=== PATIENT | male | born 1935 | race Caucasian/White ===

== ENCOUNTER 2016-12-10 09:47 | Emergency (ER) | payer OTHER, MEDICARE ==
[~2016-12-10 09:47] MED LIST: ACETAMINOPHEN-H1 TA2 PO; ADVAIR 250-501 EACH INH; ALBUTEROL2.5 MG/3 M INH/SOL; AVODART0.5 M1 PO; COLACE100 MG PO; COMPAZINE10 MG PO; COUMADIN 7.5 M7.5 MG PO; FLOMAX0.4 M1 PO; LISINOPRIL AND1 TAB PO; MULTIPLE VITAM1 EAC2 PO; PROVENTIL HFA6.7 GM INH; SENOKOT8.6 MG PO
[2016-12-10] MEDS ORDERED: BREO ELLIPTA 21 EACH PO (10:16)
[2016-12-10] MEDS ORDERED: LISINOPRIL5 M1 PO (10:16)
--- NOTE | 2016-12-10 10:49 | ED INFLUENZA/URI COMPLAINT ---
History of Present Illness General Chief Complaint: Upper Respiratory Sx/Fever Stated Complaint: URI/ASTHMA Source: patient Exam Limitations: poor historian Vital Signs & Intake/Output Vital Signs & Intake/Output Vital Signs Date Time Temp Pulse Resp B/P Pulse O2 O2 Flow FiO2 Ox Delivery Rate 12/10 1401 100.9 91 18 108/53 96 12/10 1220 98 12/10 1200 101.5 12/10 1155 101.5 75 24 100/54 98 Room Air 12/10 1114 103.5 12/10 1046 103.5 12/10 1015 101.2 12/10 1014 97 12/10 0958 101.2 86 24 136/61 97 Room Air Allergies Coded Allergies: Penicillins (SOB 01/06/16) oxycodone (From PERCOCET) (Intermediate, HALLUCINATIONS 01/06/16) Reconcile Medications Albuterol Sulfate 2.5 MG/3 ML (0.083 %) VIAL.NEB 1 Vial INH/COURTNEY Q4P PRN ASTHMA (Reported) Albuterol Sulfate (Proventil Hfa) 90 MCG HFA.AER.AD 2 PUF INH 4 TIMES/DAY PRN ASTHMA (Reported) Dutasteride (Avodart) 0.5 MG CAPSULE 1 CAP PO DAILY PROSTATE (Reported) Fluticasone/Vilanterol (Breo Ellipta 200-25 Mcg INH) 200 MCG-25 MCG/DOSE BLST.W.DEV 1 PUFF PO DAILY BREATHING PROBLEMS (Reported) Lisinopril 5 MG TABLET 1 TAB PO DAILY HEART (Reported) Multivitamin (Multiple Vitamins) 1 EACH TABLET 1 TAB PO DAILY SUPPLEMENT ( Reported) Tamsulosin HCl (Flomax) 0.4 MG CAP.ER.24H 1 CAP PO DAILY PROSTATE (Reported) Triage Note: PT PRESENTS TO ER C/O OF SOB, BODYACHES, CHILLS, AND SORE THROAT. PT STATES SYMPTOMS STARTED LAST NIGHT. PT TEMP AT TRIAGE 101.2 Triage Nurses Notes Reviewed? yes HPI: Patient presents for evaluation of subjective fever chills runny nose shivers chest tightness and shortness of breath that began gradually on Wednesday. Symptoms are characterized as moderate to severe in intensity and nothing seems to make him feel better at this point. Patient just returned from a four-day retreat at [facility] in [place].. No associated nausea vomiting diarrhea or dysuria. No rashes. Patient has been vaccinated for the flu and for shingles. No medications tried. Past History Travel History Traveled to [place] past 21 day No Medical History Any Pertinent Medical History? 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 , Age 60+. FATHER (stomach cancer). , Age 60+. SISTER (dementia). BROTHER (dementia in two brothers). . Hx Contributory? No Review of Systems Review of Systems Constitutional: Reports: no symptoms. EENTM: Reports: see HPI. Respiratory: Reports: no symptoms. Cardiovascular: Reports: no symptoms. GI: Reports: no symptoms. Genitourinary: Reports: no symptoms. Musculoskeletal: Reports: no symptoms. Skin: Reports: no symptoms. Neurological/Psychological: Reports: no symptoms. Hematologic/Endocrine: Reports: no symptoms. Immunologic/Allergic: Reports: no symptoms. All Other Systems: Reviewed and Negative Physical Exam Physical Exam Ears, Nose, Throat: SEE BELOW Comments: Gen.: Well-nourished, well-developed, no acute respiratory distress. Head: Normocephalic, atraumatic. Eyes: Normal inspection bilaterally Ears: Normal inspection bilaterally Nose: Normal inspection Throat/mouth : Moist mucosa Neck: Supple, full range of motion, no goiter Heart: Regular rate and rhythm, no murmurs rubs or gallops Lungs: Clear to auscultation bilaterally with normal air entry Chest: Nontender Back: Normal range of motion Abdomen: Soft, nontender, nondistended, normal bowel sounds Extremities: Normal range of motion grossly, equal radial pulses, no cyanosis clubbing or edema Neurologic: Cranial nerves grossly intact, speech is clear Skin: warm and dry Psychiatric: Calm, cooperative, no apparent delusions or hallucinations Core Measures Severe Sepsis Present: No Septic Shock Present: No Progress Differential Diagnosis: pneumonia, VIRAL SYNDROME, uti Plan of Care: Orders Procedure Date/time Status CULTURE,URINE 12/10 1100 Active BLOOD CULTURE 12/10 1100 Active URINALYSIS 12/10 1100 Complete COMPREHENSIVE METABOLIC PANEL 12/10 1100 Complete CBC WITHOUT DIFFERENTIAL 12/10 1100 Complete RAPID VIRAL INFLUENZA A 12/10 1008 Complete EKG 12/10 0950 Active Laboratory Tests 12/10/16 1137: Urine Color YEL, Urine Clarity CLEAR, Urine pH 7.0, Ur Specific [place] 1.020, Urine Protein NEG, Urine Ketones NEG, Urine Nitrite NEG, Urine Bilirubin NEG, Urine Urobilinogen 0.2, Ur Leukocyte Esterase NEG, Ur Microscopic SEDIMENT EXAMINED, Urine RBC RARE, Urine Hemoglobin TRACE-INTACT H, Urine Glucose NEG 12/10/16 1125: Anion Gap 11, Estimated GFR 58 L, BUN/Creatinine Ratio 18.3, Glucose 109 H, Calcium 9.4, Total Bilirubin 0.8, AST 31, ALT 32, Alkaline Phosphatase 78, Total Protein 6.7, Albumin 3.8, Globulin 2.9, Albumin/Globulin Ratio 1.3, CBC w Diff NO MAN DIFF REQ, RBC 4.94, MCV 88.8, MCH 30.1, RDW 14.4, MPV 9.3, Gran % 83.4 H , Lymphocytes % 4.5 L, Monocytes % 9.2, Eosinophils % 2.7, Basophils % 0.2, Absolute Granulocytes 7.5 H, Absolute Lymphocytes 0.4 L, Absolute Monocytes 0.8 H, Absolute Eosinophils 0.2, Absolute Basophils 0, PUBS MCHC 33.9 Microbiology 12/10 1152 BLOOD: Blood Culture - RECD 12/10 1137 URINE ROUT: Urine Culture - RECD 12/10 1125 BLOOD: Blood Culture - RECD 12/10 1011 NASOPHARYN: Influenza Virus A & B Rapid Smear - COMP Diagnostic Imaging: Discussed w/RAD: Radiology Read. CXR Impression: PATIENT: DONAL CAMPOS PRESENT AGE: 81 PATIENT ACCOUNT NO: [id number] : 34 LOCATION: [facility] ORDERING PHYSICIAN: BJORN GARCIA MD SERVICE DATE: 12/10/16-1099 EXAM TYPE: RAD - XRY-PORTABLE CHEST XRAY EXAMINATION: XR PORTABLE CHEST CLINICAL INFORMATION: Fever COMPARISON : None TECHNIQUE: Portable AP view of the chest was obtained. FINDINGS: The lungs are clear with no focal consolidation. No evidence of pneumothorax, pulmonary edema, or pleural effusions. The cardiomediastinal silhouette is unremarkable. No acute osseous findings. IMPRESSION: No acute cardiopulmonary findings. DICTATED BY: GEM OLEARY MD DATE/TIME DICTATED:12/10/161134 DISCHARGE PLANNER:TAWNYA DATE/TIME TRANSCRIBED:12/10/161134 CONFIDENTIAL, DO NOT COPY WITHOUT APPROPRIATE AUTHORIZATION. <Electronically signed in Other Vendor System> SIGNED BY: GEM OLEARY MD 12/10/16 1142 Initial ED EKG: none Comments: 12/10/2016 10:48:16 AM Donal states that he has a penicillin allergy as his only known allergic reaction. He states he's never been told not to take Tylenol. We have an allergy listed to Tylenol with hallucinations. It seems likely that the hallucinations came from the oxycodone component of Percocet and not the acetaminophen component. Tylenol has been ordered for persistent high fever. 12/10/2016 2:12:20 PM Donal appears comfortable at this point and he is conversant and without complaint. I've explained to him that the evaluation here in the emergency department has been unrevealing. He will follow up with his primary care doctor within 24 hours for reevaluation. Departure Departure Disposition: HOME OR SELF CARE Condition: Stable Clinical Impression Primary Impression: Febrile illness, acute Referrals: PATSY MILLER DO (PCP/Family) Additional Instructions: Alternate Tylenol 975 mg with ibuprofen 600 mg every 6 hours as needed for fever. Robitussin as needed for cough or cold symptoms. Follow-up with your primary care doctor tomorrow (or if unable then return to the emergency department) for reevaluation. Return immediately if any sudden worsening. Thank you for choosing the [facility] Emergency Department for your care. It was a pleasure to serve you today. Bjorn Garcia M.D. [facility] Departure Forms: Customer Survey General Discharge Information
[2016-12-10 11:41] LABS: ABSOLUTE BASOPHIL COUNT 0 /CUMM (0.0-0.2); ABSOLUTE EOSINOPHIL COUNT 0.2 /CUMM (0.0-0.7); ABSOLUTE GRANULOCYTE CT 7.5 /CUMM (1.4-6.5); ABSOLUTE LYMPH COUNT 0.4 /CUMM (1.2-3.4); ABSOLUTE MONOCYTE COUNT 0.8 /CUMM (0.10-0.60); BASOPHIL % 0.2 % (0.0-2.0); EOSINOPHIL % 2.7 % (0-5); HEMATOCRIT 43.8 % (42-52); MEAN CORPUSCULAR HGB 30.1 PG (27.0-31.0); MEAN CORPUSCULAR HGB CONC 33.9 G/DL (33.0-37.0); MEAN CORPUSCULAR VOLUME 88.8 FL (80.0-94.0); MEAN PLATELET VOLUME 9.3 FL (7.4-10.4); PLATELET COUNT 153 /CUMM (130-400); RBC DISTRIBUTION WIDTH 14.4 % (11.5-14.5); RED BLOOD CELL CT 4.94 /CUMM (4.70-6.10); WHITE BLOOD CELL COUNT 8.9 /CUMM (4.8-10.8)
--- NOTE | 2016-12-10 11:42 | RADIOLOGY REPORT ---
EXAMINATION: XR PORTABLE CHEST CLINICAL INFORMATION: Fever COMPARISON: None TECHNIQUE: Portable AP view of the chest was obtained. FINDINGS: The lungs are clear with no focal consolidation. No evidence of pneumothorax, pulmonary edema, or pleural effusions. The cardiomediastinal silhouette is unremarkable. No acute osseous findings. IMPRESSION: No acute cardiopulmonary findings.
[2016-12-10 12:11] LABS: GRANULOCYTE % 83.4 % (42.2-75.2)
[2016-12-10 14:01] VITALS: BP 108/53
== END 2016-12-10 15:00 ==
LOC: ERH 09:47
PROVIDERS: Emergency Medicine
DX: R50.9 Fever, unspecified (principal)
CPT/HCPCS: 1263; 81001; 87040; 87086; 87804; 87804-59; 93005; 93010; 96360; J7040

== ENCOUNTER 2016-12-12 10:36 | Inpatient (IN) | payer OTHER, MEDICARE ==
[~2016-12-12] VITALS: Ht 162.6 cm; Wt 69.9 kg
[~2016-12-12 10:36] MED LIST changes: +BREO ELLIPTA 21 EACH PO; +LISINOPRIL5 M1 PO
--- NOTE | 2016-12-12 10:49 | NUR ---
PT TO ED FOR BODY ACHES, CHILLS. DX'ED WITH FLU ON WEDNESDAY AND "NOT FEELING BETTER AND I LIVE ALONE". AFEBRILE AT TRIAGE.
--- NOTE | 2016-12-12 11:12 | ED GENERAL ADULT ---
History of Present Illness General Chief Complaint: General Adult Stated Complaint: CHEST CONGESTION, CP, COUGH, +FLU Source: patient, old records Exam Limitations: no limitations Vital Signs & Intake/Output Vital Signs & Intake/Output Vital Signs Date Time Temp Pulse Resp B/P Pulse O2 O2 Flow FiO2 Ox Delivery Rate 12/12 1556 99.9 74 18 128/69 96 Room Air 12/12 1418 100.1 12/12 1404 100.1 78 18 129/60 97 Room Air 12/12 1226 99.3 82 18 137/66 97 Room Air 12/12 1150 96 12/12 1132 98 12/12 1048 98.8 98 15 106/92 97 Room Air Allergies Coded Allergies: Penicillins (SOB 01/06/16) oxycodone (From PERCOCET) (Intermediate, HALLUCINATIONS 01/06/16) Reconcile Medications Albuterol Sulfate 2.5 MG/3 ML (0.083 %) VIAL.NEB 1 Vial INH/COURTNEY Q4P PRN ASTHMA (Reported) Albuterol Sulfate (Proventil Hfa) 90 MCG HFA.AER.AD 2 PUF INH 4 TIMES/DAY PRN ASTHMA (Reported) Azithromycin (Zithromax) 250 MG TABLET 1 DP PO AD URI (Reported) 2 the first day followed by 1 for days 2-5 Dutasteride (Avodart) 0.5 MG CAPSULE 1 CAP PO DAILY PROSTATE (Reported) Fluticasone/Vilanterol (Breo Ellipta 200-25 Mcg INH) 200 MCG-25 MCG/DOSE BLST.W.DEV 1 PUFF PO DAILY BREATHING PROBLEMS (Reported) Lisinopril 5 MG TABLET 1 TAB PO DAILY HEART (Reported) Multivitamin (Multiple Vitamins) 1 EACH TABLET 1 TAB PO DAILY SUPPLEMENT ( Reported) Robitussin AC (Guaifenesin-Codeine Syrup) (Unknown Strength) LIQUID (Unknown Dose) PRN PRN COUGH (Reported) Tamsulosin HCl (Flomax) 0.4 MG CAP.ER.24H 1 CAP PO DAILY PROSTATE (Reported) Triage Note: PT TO ED FOR BODY ACHES, CHILLS. DX'ED WITH FLU ON WEDNESDAY AND "NOT FEELING BETTER AND I LIVE ALONE". AFEBRILE AT TRIAGE. Triage Nurses Notes Reviewed? yes HPI: Patient is an 81-year-old male presents complaining of cough with sputum production, sore throat, fevers. Symptoms onset on Wednesday. Patient was seen in the emergency department 2 days ago and was discharged. Patient was seen yesterday by Dr. Conn covering for his primary doctor, was placed on azithromycin and cough medication containing codeine. Patient reports he took the first dose of the azithromycin yesterday, has not been feeling any improvement. Patient used his Aman inhaler and nebulizer inhaler with mild improvement this morning. Positive fevers. Patient has been taking Tylenol and Advil alternating every 3 hours with mild improvement. (HUYEN COLEMAN) Past History Travel History Traveled to [place] past 21 day No Medical History Any Pertinent Medical History? 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 , Age 60+. FATHER (stomach cancer). , Age 60+. SISTER (dementia). BROTHER (dementia in two brothers). . Hx Contributory? No (HUYEN COLEMAN) Review of Systems Review of Systems Constitutional: Reports: chills, fever, malaise. EENTM: Reports: nasal congestion, throat pain. Respiratory: Reports: see HPI. Cardiovascular: Denies: chest pain. GI: Denies: abdominal pain, nausea, vomiting. Genitourinary: Reports: no symptoms. Musculoskeletal: Reports: no symptoms. Skin: Reports: no symptoms. Neurological/Psychological: Reports: no symptoms. Hematologic/Endocrine: Reports: no symptoms. Immunologic/Allergic: Reports: no symptoms. (HUYEN COLEMAN) Physical Exam Physical Exam General Appearance: well developed/nourished, alert, awake Head: atraumatic, normal appearance Eyes: Bilateral: normal appearance, PERRL, EOMI. Ears, Nose, Throat: normal ENT inspection, hearing grossly normal, minimal pharyngeal erythema, no exudates Neck: normal inspection, supple, full range of motion Respiratory: chest non-tender, mild diffuse expiratory wheezing Cardiovascular: regular rate/rhythm (no murmur appreciated) Gastrointestinal: soft, non-tender Back: normal inspection, normal range of motion Extremities: normal inspection, normal capillary refill, normal range of motion, no edema Neurologic/Psych: no motor/sensory deficits, awake, alert, oriented x 3, normal gait, normal mood/affect Skin: intact, normal color, warm/dry Lymphatic: no anterior cervical quan Core Measures ACS in differential dx? No CVA/TIA Diagnosis: No Severe Sepsis Present: No Septic Shock Present: No (ELENA CORDERO,HUYEN) Progress Differential Diagnoses I considered the following diagnoses in my evaluation of the patient: bronchitis , pneumonia, influenza, electrolyte abnormality, SABAS Plan of Care: Orders Procedure Date/time Status Regular Diet 12/12 D Active Pathway - chart 12/12 1551 Active Pathway - chart 12/12 1550 Active House Staff 12/12 1550 Active Patient Data 12/12 1550 Active Code Status 12/12 1550 Active Patient Data 12/12 1423 Active OXYGEN SETUP (GEN) 12/12 1404 Active Saline Lock 12/12 1404 Active Misc Message 12/12 1404 Active ED Holding Orders 12/12 1404 Active Vital Signs 12/12 1404 Active Activity/Ambulation 12/12 1404 Active Code Status 12/12 1404 Complete Admit to inpatient 12/12 1403 Active EKG 12/12 1324 Active AEROSOL (GEN) 12/12 1213 Complete Intake & Output 12/12 1131 Active CBC WITHOUT DIFFERENTIAL 12/12 1120 Complete BASIC METABOLIC PANEL 12/12 1120 Complete VTE Mechanical Prophylaxis 12/12 UNK Active Current Medications Sig/Yamel Start time Last Medication Dose Stop Time Status Admin Heparin Sodium 5,000 UNIT Q8 12/12 2200 AC (Porcine) Acetaminophen 650 MG Q6P PRN 12/12 1600 AC (Tylenol) Laboratory Tests 12/12/16 1147: Anion Gap 11, Estimated GFR 36 L, BUN/Creatinine Ratio 19.4, Glucose 106 H, Calcium 9.3, CBC w Diff NO MAN DIFF REQ, RBC 4.63 L, MCV 89.7, MCH 29.6, RDW 14.8 H, MPV 10.2, Gran % 73.8, Lymphocytes % 6.2 L, Monocytes % 17.9 H, Eosinophils % 2.0, Basophils % 0.1, Absolute Granulocytes 4.9, Absolute Lymphocytes 0.4 L, Absolute Monocytes 1.2 H, Absolute Eosinophils 0.1, Absolute Basophils 0, PUBS MCHC 33.0 1210: Discussed with Dr. Logan. (HUYEN COLEMAN) Diagnostic Imaging: Viewed by Me: Radiology Read. Discussed w/RAD: Radiology Read. CXR Impression: PATIENT: FRANCHESCA CAMPOS PRESENT AGE: 81 PATIENT ACCOUNT NO: [id number] : 34 LOCATION: [facility] ORDERING PHYSICIAN: HUYEN CORDERO SERVICE DATE: 12/12/16 EXAM TYPE: RAD - XRY-CHEST XRAY, PA AND LATERAL EXAMINATION: XR CHEST CLINICAL INFORMATION: Cough. Fever. Sputum production. Evaluate for pneumonia. COMPARISON: Chest x-ray dated 2016, 08/05/2015 and 11/12/2010. TECHNIQUE: 2 views of the chest were obtained. FINDINGS: The cardiomediastinal silhouette is within normal limits in size. Lungs bilaterally are symmetrically mildly hyperinflated and demonstrate slight thickening of the central airways, consistent with obstructive lung disease. No focal consolidation, effusion or pneumothorax is seen. Bony structures are unremarkable. IMPRESSION: 1. Unchanged appearance of the chest with no focal pneumonia seen. 2. Obstructive lung disease. DICTATED BY: VICENTE HONG MD DATE/TIME DICTATED:12/12/161214 RACE STARTER:TAWNYA DATE/TIME TRANSCRIBED:12/12/161214 CONFIDENTIAL, DO NOT COPY WITHOUT APPROPRIATE AUTHORIZATION. <Electronically signed in Other Vendor System> SIGNED BY: VICENTE HONG MD 12/12/16 1222 Initial ED EKG: normal sinus rhythm, nonspecific ST T wave chg Prior EKG: changed (nonspecific st/t wave) (HUYEN COLEMAN) Departure Departure Time of Disposition: 1315 Disposition: STILL A PATIENT Condition: Stable Clinical Impression Primary Impression: Acute kidney injury Secondary Impressions: Bronchitis Referrals: PATSY MILLER DO (PCP/Family) Departure Forms: Customer Survey General Discharge Information Admission Note Spoke With: EVELIA PERRY MD Documentation of Exam: Documentation of any treatments & extenuating circumstances including Concerns Regarding Discharge (functional status, medication knowledge or non-compliance, living conditions, etc.) that warrant an admission rather than observation: IV fluids, total respiratory care, pulmonary consultation. Patient failing outpatient therapy with increase in creatinine. Hold patient's lisinopril. (HUYEN COLEMAN) PA/FOX FARMER Co-Sign Statement Statement: ED Attending supervision documentation- [X] I saw and evaluated the patient. I have also reviewed all the pertinent lab results and diagnostic results. I agree with the findings and the plan of care as documented in the PA's/FOX FARMER's documentation. [X] I have reviewed the ED Record and agree with the PA's/FOX FARMER's documentation. [] Additions or exceptions (if any) to the PAs/FOX FARMER's note and plan are summarized below: [] (MALLIKA LEE,KRISTAN Roberts) Critical Care Note Critical Care Note Critical Care Time: non-applicable (HUYEN COLEMAN)
--- NOTE | 2016-12-12 11:12 | NUR ---
PT TO ROOM 18 FROM TRIAGE IN W/C, PT REPORTS "I HAVE THE FLU AND I F/U WITH MY DR YESTERDAY AND HE GAVE ME CODEINE AND ZPACK, BUT MY THROAT IS SORE AND I'M COUGHING AND CONGESTED." PT REMINDED OF NEGATIVE FLU SWAB LAST VISIT. CONSUELO PARKER AT BEDSIDE.
--- NOTE | 2016-12-12 11:27 | NUR ---
MED WITH [facility]ADRON PER EMAR, RT CALLED FOR NEB TX. PT TO XRAY ON STRETCHER NOW.
--- NOTE | 2016-12-12 11:37 | NUR ---
PT'S NEIGHBOR CALLED WITH MULTIPLE CONCERNS, BELIEVES PT SHOULD NOT HAVE BEEN D/C FROM ED THURS AND ALSO UPSET PT WAS NOT SEEN BY HIS PORTABLE SAWYER DR SHARMA IN ED ON TH FOR PULMONARY CONSULT. ALSO REQUESTING VNA WHILE PT IS SICK. INFORMED PT MAY NOT QUALIFY BUT WILL ASK FINANCIAL SERVICES COUNSELOR. PA INFORMED OF REQUEST FOR PULM AND STATES PT'S PRIMARY DR IS WORKING ON IT BUT NO NEED IN ER.
[2016-12-12] MEDS ORDERED: GUAIFENESIN-COD10 ML (11:41)
[2016-12-12] MEDS ORDERED: ZITHROMAX250 M2 PO (11:41)
--- NOTE | 2016-12-12 11:41 | NUR ---
BACK FROM XRAY. MST AT BEDSIDE FOR LABS.
--- NOTE | 2016-12-12 11:49 | NUR ---
BLOOD DRAWN AND SENT TO LAB ([facility], [facility])
--- NOTE | 2016-12-12 11:50 | NUR ---
RT AT BEDSIDE
--- NOTE | 2016-12-12 12:00 | NUR ---
Case Mgmnt TSF: I went in and introduced myself to patient. I asked him if he felt he needed any services at home. Patient does not feel he needs any services. He is independent and drives. I let him know if anything changes he is more than welcome to call us or come back. He sees Dr. Barakat for pulmonology and I suggested perhaps he call on Wednesday for an appointment. He stated that was a good idea. CM complete.
--- NOTE | 2016-12-12 12:03 | NUR ---
PHONG FROM [employer] ASKED RE: NEIGHBOR'S REQUEST FOR VNA. SHE AGREES PT IS UNLIKELY TO QUALIFY BUT DID SPEAK WITH PT. PT TOLD HER HE DOES NOT WANT VNA.
[2016-12-12 12:09] LABS: ABSOLUTE BASOPHIL COUNT 0 /CUMM (0.0-0.2); ABSOLUTE EOSINOPHIL COUNT 0.1 /CUMM (0.0-0.7); ABSOLUTE GRANULOCYTE CT 4.9 /CUMM (1.4-6.5); ABSOLUTE LYMPH COUNT 0.4 /CUMM (1.2-3.4); ABSOLUTE MONOCYTE COUNT 1.2 /CUMM (0.10-0.60); BASOPHIL % 0.1 % (0.0-2.0); GRANULOCYTE % 73.8 % (42.2-75.2); HEMATOCRIT 41.6 % (42-52); MEAN CORPUSCULAR HGB 29.6 PG (27.0-31.0); MEAN CORPUSCULAR VOLUME 89.7 FL (80.0-94.0); MEAN PLATELET VOLUME 10.2 FL (7.4-10.4); PLATELET COUNT 136 /CUMM (130-400); RBC DISTRIBUTION WIDTH 14.8 % (11.5-14.5); RED BLOOD CELL CT 4.63 /CUMM (4.70-6.10); WHITE BLOOD CELL COUNT 6.7 /CUMM (4.8-10.8)
--- NOTE | 2016-12-12 12:22 | RADIOLOGY REPORT ---
EXAMINATION: XR CHEST CLINICAL INFORMATION: Cough. Fever. Sputum production. Evaluate for pneumonia. COMPARISON: Chest x-ray dated 12/10/2016, 08/05/2015 and 11/12/2010. TECHNIQUE: 2 views of the chest were obtained. FINDINGS: The cardiomediastinal silhouette is within normal limits in size. Lungs bilaterally are symmetrically mildly hyperinflated and demonstrate slight thickening of the central airways, consistent with obstructive lung disease. No focal consolidation, effusion or pneumothorax is seen. Bony structures are unremarkable. IMPRESSION: 1. Unchanged appearance of the chest with no focal pneumonia seen. 2. Obstructive lung disease.
--- NOTE | 2016-12-12 14:11 | NUR ---
IVF INFUSING, PT AWARE OF PLAN FOR ADMIT. LUNCH TRAY ORDERED.
--- NOTE | 2016-12-12 14:24 | History & Physical ---
MALCOLM SALDAÑA 12/12/16 1424: General Information and HPI MD Statement: I have seen and personally examined FRANCHESCA CAMPOS and documented this H&P. The patient is a 81 year old M who presented with a patient stated chief complaint of [productive cough, sore throat, fever]. Source of Information: patient, old records Exam Limitations: no limitations History of Present Illness: Mr Campos is an 81-year-old gentleman with a PMH of asthma (is followed by Dr. Barakat), HTN, BPH who presents with complaints of progressive productive cough, sore throat and fevers. 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 He followed up in the emergency room and his PCP towards the end of the week and was prescribed a Z-Farhan and guaifenesin with codeine for symptomatic control. He reports progressive chest tightness, difficulty with breathing, sore throat despite starting on the Robitussin with codeine along with Z-Farhan. He does endorse alternating with Tylenol and Advil every 3 hours to help with body discomfort and pain with swallowing. Of note rapid influenza test was negative. He currently reports a persistent sore throat but denies any fevers, chills, chest pain, palpitation or worsening in breathing. Allergies/Medications Allergies: Coded Allergies: Penicillins (SOB 01/06/16) oxycodone (From PERCOCET) (Intermediate, HALLUCINATIONS 01/06/16) Home Med list Albuterol Sulfate 2.5 MG/3 ML (0.083 %) VIAL.NEB 1 Vial INH/COURTNEY Q4P PRN ASTHMA (Reported) Albuterol Sulfate (Proventil Hfa) 90 MCG HFA.AER.AD 2 PUF INH 4 TIMES/DAY PRN ASTHMA (Reported) Azithromycin (Zithromax) 250 MG TABLET 1 DP PO AD URI (Reported) 2 the first day followed by 1 for days 2-5 Dutasteride (Avodart) 0.5 MG CAPSULE 1 CAP PO DAILY PROSTATE (Reported) Fluticasone/Vilanterol (Breo Ellipta 200-25 Mcg INH) 200 MCG-25 MCG/DOSE BLST.W.DEV 1 PUFF PO DAILY BREATHING PROBLEMS (Reported) Lisinopril 5 MG TABLET 1 TAB PO DAILY HEART (Reported) Multivitamin (Multiple Vitamins) 1 EACH TABLET 1 TAB PO DAILY SUPPLEMENT ( Reported) Robitussin AC (Guaifenesin-Codeine Syrup) (Unknown Strength) LIQUID (Unknown Dose) PRN PRN COUGH (Reported) Tamsulosin HCl (Flomax) 0.4 MG CAP.ER.24H 1 CAP PO DAILY PROSTATE (Reported) Past History Travel History Traveled to [place] past 21 day No Medical History Neurological: NONE EENT: NONE Cardiovascular: hypertension Respiratory: asthma Gastrointestinal: NONE Hepatic: NONE Renal: NONE Musculoskeletal: osteoarthritis Psychiatric: NONE Endocrine: NONE Blood Disorders: NONE Cancer(s): 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 , Age 60+. FATHER (stomach cancer). , Age 60+. SISTER (dementia). BROTHER (dementia in two brothers). . Psychosocial History Who Do You Live With? self Services at Home: None Primary Language: Eritrean ETOH Use: occasional use Illicit Drug Use: denies illicit drug use Functional Ability ADLs Independent: dressing, eating, toileting, bathing. Ambulation: cane, walker IADLs Independent: shopping, housework, finances, food prep, telephone, transportation , medication admin. Review of Systems Review of Systems Constitutional: Reports: see HPI. EENTM: Reports: see HPI. Cardiovascular: Reports: no symptoms. Respiratory: Reports: see HPI. GI: Reports: no symptoms. Musculoskeletal: Reports: no symptoms. Neurological/Psychological: Reports: no symptoms. Exam & Diagnostic Data Last 24 Hrs of Vital Signs/I&O Vital Signs Date Time Temp Pulse Resp B/P Pulse O2 O2 Flow FiO2 Ox Delivery Rate 12/12 1556 99.9 74 18 128/69 96 Room Air 12/12 1418 100.1 12/12 1404 100.1 78 18 129/60 97 Room Air 12/12 1226 99.3 82 18 137/66 97 Room Air 12/12 1150 96 12/12 1132 98 12/12 1048 98.8 98 15 106/92 97 Room Air Intake & Output 12/12 1600 12/12 0800 12/12 0000 Intake Total Output Total Balance Patient 155 lb Weight Physical Exam General Appearance Alert, Cooperative, No Acute Distress, Hoarse voice HEENT PERRLA, EOMI, Mucous Membr. moist/pink, No evidence of pharyngela erythema or exudate Cardiovascular Regular Rate, Normal S1, Normal S2 Lungs Normal Air Movement, Expiratory rhonchi present BL Abdomen Normal Bowel Sounds, Soft, No Tenderness Extremities No Edema, Normal Pulses Vascular Pulses Symmetrical Last 24 Hrs of Labs/Tylor: Laboratory Tests 12/12/16 1147: Anion Gap 11, Estimated GFR 36 L, BUN/Creatinine Ratio 19.4, Glucose 106 H, Calcium 9.3, CBC w Diff NO MAN DIFF REQ, RBC 4.63 L, MCV 89.7, MCH 29.6, RDW 14.8 H, MPV 10.2, Gran % 73.8, Lymphocytes % 6.2 L, Monocytes % 17.9 H, Eosinophils % 2.0, Basophils % 0.1, Absolute Granulocytes 4.9, Absolute Lymphocytes 0.4 L, Absolute Monocytes 1.2 H, Absolute Eosinophils 0.1, Absolute Basophils 0, PUBS MCHC 33.0 Microbiology 12/12 2143 URINE ROUT: Legionella Antigen - ORD 12/12 2143 URINE ROUT: Streptococcus pneumoniae Antigen (M - ORD 12/12 2143 URINE ROUT: Urine Culture - ORD Diagnostic Data CXR Results The cardiomediastinal silhouette is within normal limits in size. Lungs bilaterally are symmetrically mildly hyperinflated and demonstrate slight thickening of the central airways, consistent with obstructive lung disease. No focal consolidation, effusion or pneumothorax is seen. Assessment/Plan Assessment: 81-year-old gentleman with a PMH of asthma, HTN, BPH who presents with 5 day duration of productive cough, intermittent fevers, chills, URI symptoms, started on azithromycin and guaifenesin with codeine 24 hours ago with no improvement. Patient was also taking Tylenol and Advil every 3 hours for sore throat. Rapid influenza test came back negative. VS: BP 106/92, HR 98, RR 15, SPO2 95% on RA, T 98.9. MAXIMUM TEMPERATURE 100.1. Labs: WBC 6.7, H&H 13.7/41.6, platelets 136, sodium 146, BUN/CR 35/1.8, glucose 106 Problem list: 1. Bronchitis vs asthma exacerbation vs atypical pneumonia vs strep pharyngitis 2. Acute kidney injury 3. Hyponatremia 4. HTN 5. BPH Plan: * Admit to general medicine for management of his wrist her symptoms * His rest her symptoms appear to have a possible multifactorial etiology: Less likely influenza in the setting of negative rapid flu test however asthma exacerbation with superimposed bronchitis could be playing a part * Follow-up rapid strep throat culture * Started patient on ceftriaxone and azithromycin * The setting of CXR findings of airway inflammation, rhonchi and scant expiratory wheeze on PE, would be inclined to continue the patient on IV steroids and assess for clinical improvement in the a.m. * SABAS: She reports Tylenol and Advil Q3hrs over the past few days. This could have played a part in his renal insufficiency. In the setting of mild hyponatremia, will hydrate with D5 half and is at 75 mL an hour 1. Follow-up renal function in the a.m. Avoid nephrotoxic agents * HTN: BP so far is well-controlled. Will hold lisinopril, monitor BP and if required start him on amlodipine 2.5-5 mg pending resolution of SABAS * AM team: Consult pulmonology * Diet: Heart healthy * I&O over the next 24 hours. Continuing tamsulosin and dutasteride for BPH. If persistent SABAS, follow-up with bladder scan/renal ultrasound * DVT prophylaxis: Heparin 5000 units subcutaneous * CODE STATUS: DNR/DNI AM TEAM: * Follow-up new clean catch UA * Follow-up urine strep, Legionella antigen * Follow-up rapid strep throat culture As Ranked By This Provider Problem List: 1. Bronchitis 2. Acute kidney injury 3. Asthma 4. BPH (benign prostatic hypertrophy) 5. Hypertension Core Measures/Miscellaneous Acute Coronary Syndrome ACS Diagnosis: No Cerebrovascular Accident CVA/TIA Diagnosis: No Congestive Heart Failure CHF Diagnosis: No Venous Thromboembolism VTE Risk Factors: Age > 40 VTE Prophylaxis Ordered Inpt: Pharm- Heparin No Mech VTE prophylaxis d/t: No contraindications No VTE Pharm Prophylaxis d/t: No contraindications VTE Diagnosis: No VTE Type: NONE VTE Confirmed by (Test): NONE Severe Sepsis Severe Sepsis Present: No Septic Shock Septic Shock Present: No Miscellaneous Documentation Attending Case Discussed With: VICKY LEE,EVELIA Henriquez Primary Care Physician: PATSY MILLER DO Patient sees these Specialists Dr. Barakat Level of Patient Care: General Medicine Resident Review Statement Resident Statement: examined this patient, discussed with recruitment internship, agreed with recruitment internship, reviewed EMR data (avail), discussed with nursing, reviewed images EVELIA PERRY MD 12/12/16 1652: Attending MD Review Statement Attending Statement Attending MD Statement: examined this patient, discuss w/resident/PA/AUTOMOBILE DEALER, agreed w/resident/PA/AUTOMOBILE DEALER, reviewed EMR data (avail), discussed with case mgmt, reviewed images Attending Assessment/Plan: 81-year-old male past medical history of hypertension, asthma/obstructive lung disease and BPH. He sees Dr. Barakat as an outpatient for pulmonary care and he says that he has been diagnosed with ?influenza although I'm unclear as to how he got this diagnosis given that the flu swab we have here is negative. He clearly made an ED visit here on 12/10 where he had a fever of 103 but no white count ,chest x-ray was negative, flu swab was negative. He subsequently went to his primary's office and was given a Z-Farhan and codeine but continues to feel feverish with cough chills and is now getting dehydrated with evidence of sabas. Will bring him into general medicine, treat him as an asthma exacerbation, he already got IV steroids in the ER. Given that he is not obviously wheezing or has no evidence now of active bronchospasm will hold off on any more steroids. I am worried about a clinical pneumonia given his ongoing symtoms of cough, fever, sob and the chest xray may not be totally reliable as he is dehydrated with a cre that went from 1.2 to 1.8 in 2 days. Will give him ceftriaxone and azithromycin and closely follow-up his respiratory status with TRC with nebs. He is specifically requesting Dr. Barakat to see him and will call pulmonary in a.m. Will hydrate him and hold all nephrotoxic's including his lisinopril. Give him DVT prophylaxis and follow closely.
--- NOTE | 2016-12-12 14:50 | NUR ---
PT EATING LUNCH, NO COMPLAINTS AT THIS TIME.
--- NOTE | 2016-12-12 14:51 | NUR ---
PT ADMITTED TO ROOM 229-1
--- NOTE | 2016-12-12 15:55 | NUR ---
SEEN BY HOUSE STAFF
--- NOTE | 2016-12-12 16:14 | NUR ---
REPORT CALLED TO [facility] ON 2N, TRANSPORT BOOKED, PT AWARE. MADE AWARE OF PERCOCET ORDERS WITH OXYCODONE ADVERSE RXN AND STATES IT WILL BE D/C.
--- NOTE | 2016-12-12 16:58 | Admission Certification ---
Admission Certification Certification Statement - As attending physician, I certify that at the time of - admission, based on clinical presentation, severity of - symptoms, need for further diagnostic testing and - therapeutic interventions, and risk of adverse outcomes - without in-hospital treatment, in my clinical assessment, - this patient requires an acute hospital stay for a minimum - of two nights or longer. I have also considered psychsocial - factors such as support system, advanced age, financial - issues, cognitive issues, and failed out-patient treatments, - past re-admission history, safety of patient, and lack of - compliance as applicable. Specific rationale supporting this admission is: Acute cough fever and respiratory symptoms in patient with known asthma and failure of outpatient treatment.
--- NOTE | 2016-12-12 20:05 | NUR ---
PT ARRIVED TO FLOOR AT [facility]. 1650/ A&O X3. LUNGS CTA, VOICE HOARSE, C/O INTERMITTENT PAIN, BUT CURRENTLY 0/10. IV FLUIDS RUNNING PER EMAR. 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 PT AWARE AND VERBALIZED UNDERSTANDING TO RECEIVE UPON D/C. BED LOW, LOCKED, CALL FREEDMAN WITHIN REACH. MONITOR RESP STATUS AND MAINTAIN SAFETY PRECATIONS.
[2016-12-12 22:27] VITALS: BP 118/60
[2016-12-13 06:49] VITALS: BP 116/74
[2016-12-13 08:24] LABS: ABSOLUTE BASOPHIL COUNT 0 /CUMM (0.0-0.2); ABSOLUTE EOSINOPHIL COUNT 0 /CUMM (0.0-0.7); ABSOLUTE GRANULOCYTE CT 5.3 /CUMM (1.4-6.5); ABSOLUTE LYMPH COUNT 0.5 /CUMM (1.2-3.4); ABSOLUTE MONOCYTE COUNT 0.4 /CUMM (0.10-0.60); BASOPHIL % 0 % (0.0-2.0); EOSINOPHIL % 0 % (0-5); GRANULOCYTE % 86.2 % (42.2-75.2); MEAN CORPUSCULAR HGB CONC 33.5 G/DL (33.0-37.0); MEAN CORPUSCULAR VOLUME 89.7 FL (80.0-94.0); MEAN PLATELET VOLUME 10.6 FL (7.4-10.4); PLATELET COUNT 130 /CUMM (130-400); RBC DISTRIBUTION WIDTH 14.5 % (11.5-14.5); RED BLOOD CELL CT 4.01 /CUMM (4.70-6.10)
--- NOTE | 2016-12-13 08:24 | PN- Housestaff ---
JITENDRA LEE,[facility] 12/13/16 0824: Subjective Follow-up For: productive cough, sore throat, fever Subjective: Patient is alert and oriented, in no distress, appears well nourished. reports he could not sleep well last night because of the machine put around his legs ( APLS). reports coughing with brown phlegm, also that he noticed blood coming out at the end of urination last night. he did not notice blood again. Review of Systems Constitutional: Denies: chills, fever, weakness. EENTM: Reports: no symptoms. Cardiovascular: Denies: chest pain, palpitations. Respiratory: Reports: cough, sputum production. Denies: short of breath, wheezing. Gastrointestinal: Denies: abdominal pain, nausea, bloody stool, changes in stool, vomiting. Genitourinary: Reports: dysuria, hesitation, pain. Musculoskeletal: Reports: no symptoms. Skin: Reports: no symptoms. Neurological/Psychological: Reports: no symptoms. Objective Last 24 Hrs of Vital Signs/I&O Vital Signs Date Time Temp Pulse Resp B/P Pulse O2 O2 Flow FiO2 Ox Delivery Rate 12/13 0649 98.4 74 16 116/74 94 Room Air 12/12 2312 Room Air 12/12 2227 98.7 74 18 118/60 94 Room Air 12/12 1556 99.9 74 18 128/69 96 Room Air 12/12 1418 100.1 12/12 1404 100.1 78 18 129/60 97 Room Air 12/12 1226 99.3 82 18 137/66 97 Room Air 12/12 1150 96 12/12 1132 98 12/12 1048 98.8 98 15 106/92 97 Room Air Intake & Output 12/13 1600 12/13 0800 12/13 0000 Intake Total 720 950 Output Total 150 600 Balance 570 350 Intake, IV 600 650 Intake, Oral 120 300 Number 0 Bowel Movements Output, Urine 150 600 Patient 69.853 kg Weight Physical Exam General Appearance: Alert, Oriented X3, Cooperative, No Acute Distress Skin: No Rashes, No Breakdown, No Significant Lesion HEENT: Atraumatic, EOMI Neck: Supple, No JVD Cardiovascular: Regular Rate, Normal S1, Normal S2, No Murmurs Lungs: diffuse bilaterall wheezing and rhonchi (inspiratory and expiratory) Abdomen: Normal Bowel Sounds, Soft, No Tenderness Neurological: Normal Speech, Normal Tone Extremities: No Cyanosis, No Edema, Normal Pulses, No Tenderness/Swelling Vascular: Normal Pulses, Pulses Symmetrical Current Medications: Current Medications Sig/Yamel Start time Last Medication Dose Route Stop Time Status Admin Acetaminophen 650 MG Q6P PRN 12/12 1600 AC PO Acetaminophen 0 .STK-MED ONE 12/12 1419 DC PO Acetaminophen 650 MG ONCE ONE 12/12 1415 DC 12/12 PO 12/12 1416 1418 Albuterol Sulfate 3 ML EVERY 4 HRS/AWAKE 12/13 0800 AC 12/12 INH 2140 Albuterol Sulfate 3 ML ONCE ONE 12/12 1130 DC 12/12 INH 12/12 1131 1144 Azithromycin 500 MG 12/12 AC 12/12 Dextrose/Water 250 ML IV 2259 Ceftriaxone Sodium 1,000 MG 12/12 2200 AC 12/12 IV 2259 Dexamethasone 8 MG ONCE ONE 12/12 1130 DC 12/12 PO 12/12 1131 1127 Dexamethasone 0 .STK-MED ONE 12/12 1126 DC PO Dextrose/Sodium 1,000 ML Q13H 12/12 2130 AC 12/12 Chloride IV 12/13 1029 2259 Dutasteride 0.5 MG DAILY 12/13 1000 AC PO Guaifenesin 10 ML Q6P PRN 12/12 2130 AC 12/12 PO 2130 Guaifenesin/Codeine 10 ML ONCE ONE 12/12 1415 DC 12/12 Phosphate PO 12/12 1416 1418 Heparin Sodium 5,000 UNIT Q8 12/12 2200 AC 12/13 (Porcine) SC 0535 Ipratropium [place] 2.5 ML ONCE ONE 12/12 1130 DC 12/12 INH 12/12 1131 1144 Methylprednisolone 40 MG Q12 12/12 2200 AC 12/12 IV 2259 Oxycodone/ 1 TAB Q6P PRN 12/12 1600 DC Acetaminophen PO Oxycodone/ 2 TAB Q6P PRN 12/12 1600 DC Acetaminophen PO Sodium Chloride 1,000 ML ONCE ONE 12/12 1330 DC 12/12 IV 12/12 2129 1408 Tamsulosin HCl 0.4 MG 12/13 0800 AC PO Last 24 Hrs of Lab/Tylor Results Last 24 Hrs of Labs/Mics: Laboratory Tests 12/13/16 0635: Anion Gap 9, Estimated GFR 49 L, BUN/Creatinine Ratio 21.4, CBC w Diff Pending, WBC Pending, RBC Pending, Hgb Pending, Hct Pending, MCV Pending, MCH Pending, RDW Pending, Plt Count Pending, MPV Pending, Gran % Pending, Lymphocytes % Pending, Monocytes % Pending, Eosinophils % Pending, Basophils % Pending, Absolute Granulocytes Pending, Absolute Lymphocytes Pending, Absolute Monocytes Pending, Absolute Eosinophils Pending, Absolute Basophils Pending, PUBS MCHC Pending 12/12/162233: Urine Color YEL, Urine Clarity CLEAR, Urine pH 6.0, Ur Specific [place] 1.015, Urine Protein TRACE H, Urine Ketones NEG, Urine Nitrite NEG, Urine Bilirubin NEG, Urine Urobilinogen 0.2, Ur Leukocyte Esterase NEG, Ur Microscopic SEDIMENT EXAMINED, Urine RBC 10-15 H, Urine WBC 5-10 H, Ur Epithelial Cells RARE, Urine Hemoglobin MOD H, Urine Glucose NEG 12/12/16 1147: Anion Gap 11, Estimated GFR 36 L, BUN/Creatinine Ratio 19.4, Glucose 106 H, Calcium 9.3, CBC w Diff NO MAN DIFF REQ, RBC 4.63 L, MCV 89.7, MCH 29.6, RDW 14.8 H, MPV 10.2, Gran % 73.8, Lymphocytes % 6.2 L, Monocytes % 17.9 H, Eosinophils % 2.0, Basophils % 0.1, Absolute Granulocytes 4.9, Absolute Lymphocytes 0.4 L, Absolute Monocytes 1.2 H, Absolute Eosinophils 0.1, Absolute Basophils 0, PUBS MCHC 33.0 Microbiology 12/12 2233 URINE ROUT: Legionella Antigen - RES 12/12 2233 URINE ROUT: Streptococcus pneumoniae Antigen (M - RES 12/12 2233 URINE ROUT: Urine Culture - RES Assessment/Plan Assessment: 81-year-old gentleman with a PMH of asthma, HTN, BPH who presents with 5 day duration of productive cough, intermittent fevers, chills, URI symptoms, started on azithromycin and guaifenesin with codeine 24 hours ago with no improvement. Patient was also taking Tylenol and Advil every 3 hours for sore throat. Rapid influenza test came back negative. VS: BP 106/92, HR 98, RR 15, SPO2 95% on RA, T 98.9. MAXIMUM TEMPERATURE 100.1. Labs: WBC 6.7, H&H 13.7/41.6, platelets 136, sodium 146, BUN/CR 35/1.8, glucose 106 Problem list: 1. Bronchitis vs asthma exacerbation vs atypical pneumonia vs strep pharyngitis 2. Acute kidney injury 3. Hyponatremia 4. HTN 5. BPH, dysuria negative urine strep, Legionella antigen negative rapid strep throat culture Plan: * Continue ceftriaxone and azithromycin, continue IV solumedrol and nebulizer Tx * Inform Dr. Barakat tomorrow AM * Dysuria: UA shows RBCs, Hb, WBC, Urine culture sent, will follow * SABAS improvving after hydration, will repeat BEP in AM. Avoid nephrotoxic agents * HTN: held lisinopril for SABAS, monitor BP and if required start him on amlodipine 2.5-5 mg pending resolution of SABAS * AM team: Consult pulmonology * Diet: Heart healthy * I&O over the next 24 hours. Continuing tamsulosin and dutasteride for BPH. If persistent SABAS, follow-up with bladder scan/renal ultrasound * DVT prophylaxis: Heparin 5000 units subcutaneous * CODE STATUS: DNR/DNI Problem List: 1. Febrile illness, acute 2. BPH (benign prostatic hypertrophy) 3. Asthma 4. Hypertension 5. Acute kidney injury Pain Ratin Pain Location: no pain Pain Goal: Pain 4 or less Pain Plan: mild pain pathway Tomorrow's Labs & Rationales: CBC (fever, leukocytosis), BEP (SABAS) VICKY LEE,EVELIA 12/13/16 0829: Attending MD Review Statement Attending Statement Attending MD Statement: examined this patient, discuss w/resident/PA/INSTALL TECHNICIAN, agreed w/resident/PA/INSTALL TECHNICIAN, reviewed EMR data (avail), discussed with nursing, reviewed images Attending Assessment/Plan: Patient is still coughing. Overall he feels so-so. Some minor improvement since admission. His tmax was 100.1. Saturation is 94% on room air. He is an 81-year-old male with a past medical history of asthma/obstructive lung disease is here with what we think is a clinical pneumonia. He's had sick contacts, a fever 103 (12/10), ongoing respiratory symptoms and now dehydration with SABAS with failure of outpatient by mouth meds. We have him on ceftriaxone and azithro for the pneumonia, we have him on IV steroids to treat the bronchospasm associated with it. He was dehydrated and we have the lisinopril on hold and gave him fluids overnight. If his sodium is better and he is eating we can stop the fluids. He follows with Dr. Barakat in the office and is requesting a pulmonary consult so we'll follow up with that. And follow closely. failure of outpatient by mouth meds. We have him on ceftriaxone and azithro for the pneumonia, we have him on IV steroids to treat the bronchospasm associated with it. He was dehydrated and we have the lisinopril on hold and gave him fluids overnight. If his sodium is better and he is eating we can stop the fluids. He follows with Dr. Barakat in the office and is requesting a pulmonary consult so we'll follow up with that. And follow closely.
[2016-12-13 09:52] LABS: WHITE BLOOD CELL COUNT 6.1 /CUMM (4.8-10.8)
[2016-12-13 15:28] VITALS: BP 100/60
[2016-12-13 23:42] VITALS: BP 130/60
[2016-12-14 06:21] VITALS: BP 120/76
--- NOTE | 2016-12-14 07:19 | PN- Housestaff ---
See Addendum Subjective Follow-up For: productive cough, nasal congestion, sore throat, fever, episode of blood in the urine with painful urination Subjective: I saw and examined the patient this am, patient is alert and oriented, in no distress, patient reports congestion and soreness in the nose. Reports improvement of his symptoms, still has coughing and brigns up phlegm but to a lesser extent. Review of Systems Constitutional: Denies: chills, fever, weakness. EENTM: Reports: no symptoms. Cardiovascular: Denies: chest pain, orthopena. Respiratory: Reports: cough, short of breath, sputum production (brown sputum). Denies: hemoptysis. Gastrointestinal: Denies: abdominal pain, changes in stool. Genitourinary: Denies: dysuria, frequency. Musculoskeletal: Reports: no symptoms. Skin: Reports: no symptoms. Neurological/Psychological: Reports: no symptoms. Objective Last 24 Hrs of Vital Signs/I&O Vital Signs Date Time Temp Pulse Resp B/P Pulse O2 O2 Flow FiO2 Ox Delivery Rate 12/14 0915 95 Room Air 12/14 0742 71 120/76 12/14 0621 98.3 71 20 120/76 97 Room Air 12/14 0000 Room Air 12/13 2342 97.9 95 20 130/60 96 Room Air 12/13 1610 97 Room Air 12/13 1528 98.1 78 20 100/60 97 Intake & Output 12/14 1600 12/14 0800 12/14 0000 Intake Total 100 400 Output Total Balance 100 400 Intake, IV 300 Intake, Oral 100 100 Physical Exam General Appearance: Alert, Oriented X3, Cooperative, No Acute Distress Skin: No Breakdown, No Significant Lesion HEENT: Atraumatic, EOMI Neck: Supple Cardiovascular: Normal S1, Normal S2, No Murmurs Lungs: Normal Air Movement, end expiratory wheezing bilateral and diffuse Abdomen: Soft, No Tenderness Neurological: Normal Speech, Normal Tone Extremities: No Edema, Normal Pulses Vascular: Pulses Symmetrical Current Medications: Current Medications Sig/Yamel Start time Last Medication Dose Route Stop Time Status Admin Acetaminophen 650 MG .STK-MED ONE 12/13 2155 DC PO 12/13 2156 Acetaminophen 650 MG Q6P PRN 12/12 1600 AC 12/13 PO 220 Albuterol Sulfate 3 ML EVERY 4 HRS/AWAKE 12/13 0800 AC 12/14 INH 0908 Azithromycin 500 MG 2200 02/25 2200 AC 12/13 Dextrose/Water 250 ML IV 2142 Ceftriaxone Sodium 1,000 MG 12/12 AC 12/13 IV 2131 Dutasteride 0.5 MG DAILY 12/13 999 AC 12/14 PO 0743 Guaifenesin 10 ML Q6P PRN 12/12 2129 AC 12/14 PO 0933 Heparin Sodium 5,000 UNIT Q8 12/12 2199 AC 12/14 (Porcine) SC 0549 Methylprednisolone 40 MG Q24 12/15 1000 DC IV Methylprednisolone 40 MG Q12 12/15 1000 AC IV Methylprednisolone 40 MG Q12 12/12 2199 DC 12/14 IV 0742 Tamsulosin HCl 0.4 MG 12/13 0800 AC 12/14 PO 0742 Last 24 Hrs of Lab/Tylor Results Last 24 Hrs of Labs/Mics: Laboratory Tests 12/14/16 0620: Anion Gap 8, Estimated GFR 49 L, BUN/Creatinine Ratio 26.4 H, Magnesium 2.1, CBC w Diff MAN DIFF ORDERED, RBC 3.98 L, MCV 88.8, MCH 29.6, RDW 14.5, MPV 11.1 H, Gran % 85.7 H, Lymphocytes % 7.6 L, Monocytes % 6.6, Eosinophils % 0.1, Basophils % 0 L, Absolute Granulocytes 6.7 H, Segmented Neutrophils 77 H, Band Neutrophils 1, Absolute Lymphocytes 0.6 L, Lymphocytes 12 L, Monocytes 8, Absolute Monocytes 0.5, Absolute Eosinophils 0, Absolute Basophils 0, Metamyelocytes 2 H, Platelet Estimate VERIFIED BY SMEAR, Normocytic RBCs VERIFIED, Normochromic RBCs VERIFIED, PUBS MCHC 33.4 Assessment/Plan Assessment: 81-year-old gentleman with a PMH of asthma, HTN, BPH who presents with 5 day duration of productive cough, intermittent fevers, chills, URI symptoms, started on azithromycin and guaifenesin with codeine 24 hours ago with no improvement. Patient was also taking Tylenol and Advil every 3 hours for sore throat. Rapid influenza test came back negative. VS: BP 106/92, HR 98, RR 15, SPO2 95% on RA, T 98.9. MAXIMUM TEMPERATURE 100.1. Labs: WBC 6.7, H&H 13.7/41.6, platelets 136, sodium 146, BUN/CR 35/1.8, glucose 106 Problem list: 1. Bronchitis vs asthma exacerbation 2. Acute kidney injury 3. Hyponatremia 4. HTN 5. BPH, one episode of dysuria and hematuria negative urine strep, Legionella antigen negative rapid strep throat culture Plan: * Continue ceftriaxone and azithromycin, continue IV solumedrol (will keep it at Q12 today) and nebulizer Tx * Informed Dr. Barakat today that the patient is here * Dysuria: UA shows RBCs, Hb, WBC, Urine culture sent, will follow * SABAS improving after hydration, will repeat BEP in AM. Avoid nephrotoxic agents * HTN: held lisinopril for SABAS, monitor BP and if required start him on amlodipine 2.5-5 mg pending resolution of SABAS (systolic BPs have been 110s-120) * Diet: Heart healthy * I&O over the next 24 hours. Continuing tamsulosin and dutasteride for BPH. If persistent SABAS, follow-up with bladder scan/renal ultrasound * DVT prophylaxis: Heparin 5000 units subcutaneous * CODE STATUS: DNR/DNI Problem List: 1. S/P knee replacement 2. Bronchitis 3. Acute kidney injury 4. BPH (benign prostatic hypertrophy) 5. Hypertension Pain Ratin Pain Location: no pain Pain Goal: Pain 4 or less Pain Plan: mild pp (tylenol) Tomorrow's Labs & Rationales: BEP (elevated Cr)
--- NOTE | 2016-12-14 07:52 | PN- Student ---
Subjective Subjective: Patient is seen and examined at bedside. Patient is doing well. Patient reports felling better compared to yesterday. No acute events overnight. Patient continues to have wheezing episodes, typically 4-5 hours after his nebulizer treatment. Patient reports productive cough with brownish-colored sputum. Patient reports nasal congestion, rhinorrhea and continues to have intermittment chills and night sweats. Patient denies fevers, headaches, vision changes, ear pain, sore throat, dysphagia, chest pain, shortness of breath, abdominal pain, constipation and diarrhea. Patient has no difficulty with urination except he reported an episode of hematuria with dysuria overnight that has since been resolved. Objective Objective: Gen: AAOx3, NAD, well-nourished Head: Normocephalic and Atraumatic Eyes: No conjunctival injectin, no discharge Nose: Edematous bilaterally in the middle turbinates Throat: Moist mucous membranes Neck: Supple, No masses appreciated Skin: Warm and moist to touch, no rashes, no cyanosis, no pallor, no jaundice Cardiac: RRR, normal S1,S2, no m/r/g Resp: Clear to auscultation of the anterior lung diggs bilaterally, Prolonged expiratory wheezes diffusely on the posterior lung diggs, no rhonchi and crackles bilaterally, mild increase work of breathing, no decreased breath sounds. Abdomen: Soft, non-distended, NTTP on all quadrants, no rebound, no guarding, no CVA tenderness bilaterally : Deferred Results Results: Laboratory Tests 12/14/16 0620: Sodium Pending, Potassium Pending, Chloride Pending, Carbon Dioxide Pending, Anion Gap Pending, BUN Pending, Creatinine Pending, BUN/Creatinine Ratio Pending , Magnesium Pending, CBC w Diff Pending, WBC Pending, RBC Pending, Hgb Pending, Hct Pending, MCV Pending, MCH Pending, RDW Pending, Plt Count Pending, MPV Pending, PUBS MCHC Pending 12/13/16 0635: Anion Gap 9, Estimated GFR 49 L, BUN/Creatinine Ratio 21.4, CBC w Diff NO MAN DIFF REQ, RBC 4.01 L, MCV 89.7, MCH 30.0, RDW 14.5, MPV 10.6 H, Gran % 86.2 H , Lymphocytes % 8.1 L, Monocytes % 5.7, Eosinophils % 0, Basophils % 0 L, Absolute Granulocytes 5.3, Absolute Lymphocytes 0.5 L, Absolute Monocytes 0.4, Absolute Eosinophils 0, Absolute Basophils 0, PUBS MCHC 33.5 12/12/162233: Urine Color YEL, Urine Clarity CLEAR, Urine pH 6.0, Ur Specific [place] 1.015, Urine Protein TRACE H, Urine Ketones NEG, Urine Nitrite NEG, Urine Bilirubin NEG, Urine Urobilinogen 0.2, Ur Leukocyte Esterase NEG, Ur Microscopic SEDIMENT EXAMINED, Urine RBC 10-15 H, Urine WBC 5-10 H, Ur Epithelial Cells RARE, Urine Hemoglobin MOD H, Urine Glucose NEG 12/12/16 1147: Anion Gap 11, Estimated GFR 36 L, BUN/Creatinine Ratio 19.4, Glucose 106 H, Calcium 9.3, CBC w Diff NO MAN DIFF REQ, RBC 4.63 L, MCV 89.7, MCH 29.6, RDW 14.8 H, MPV 10.2, Gran % 73.8, Lymphocytes % 6.2 L, Monocytes % 17.9 H, Eosinophils % 2.0, Basophils % 0.1, Absolute Granulocytes 4.9, Absolute Lymphocytes 0.4 L, Absolute Monocytes 1.2 H, Absolute Eosinophils 0.1, Absolute Basophils 0, PUBS MCHC 33.0 Microbiology 12/12 2233 URINE ROUT: Legionella Antigen - RES 12/12 2233 URINE ROUT: Streptococcus pneumoniae Antigen (M - RES 12/12 2233 URINE ROUT: Urine Culture - RES Assessment/Plan Assessment: 81 yo male patient with a PMH of asthma, HTN, and BPH presents with a 5 day history of persistent productive cough, sore throat, intermittment fever (Tmax of 103), and URI symptoms that was unresponsive to outpatient medical managment with Azithromycin and Guanfesine. Differential diagnosis includes: Influenza, Viral URI, Typical CAP, Atypical CAP, Pharyngitis, Acute Bronchitis, and Common Cold. Given the patient's negative rapid flu test, it is unlikel the patient has influenza. However, it is possible the patient was infected was a different strain (type C) of influenza virus that is not covered by the rapid flu test. Viral URI cannot be ruled out at this time. Typical CAP is is still possible despite a normal CXR, normal WBC, and negative Strep Pneumo antigen assay, as patient may be infected by non-typeable H. flu, aerobic gram-negative rods and staph aureus. Atypical CAP is still possible, particularly by Mycoplasma bacterium considering patient's risk factors and exposure to sick contacts in a crowded setting. Pharyngitis cannot be rule out at this time without a strep culture. Acute bronchitis is likely considering patient's normal CXR. Patient is unlikely to have just the common cold as his examination shows diffuse expiratory wheezes in the lower lung diggs along with predominant lower respiratory tract symptoms. Plan: Problem list: 1. Bronchitis vs asthma exacerbation vs atypical pneumonia vs strep pharyngitis 2. Acute kidney injury 3. Hypernatremia 4. HTN 5. BPH Plan: * Respiratory: Continue IV Solumedrol 40mg Q12 for patient's persistent prolonged expiratory wheezes on exam. Consult respiratry therapist in regards to starting chest physical therapy to help patient with mucus clearance. Consult Pulmonogy in the AM * Asthma: Continue TRC Nebulizer treatment with Albuterol, Consult with pulmonogist in regards to restarting patient on his home Asthma medications * Infections: Continue patient on ceftriaxone 1000mg IV and azithromycin 500mg IV, Follow-up on rapid strep throat culture * SABAS: Follow-up renal function in the a.m for Hypernatremia. Avoid nephrotoxic agents. If persistent SABAS, follow-up with bladder scan/renal ultrasound to assess for possible obstructive uropathy * HTN: BP so far is well-controlled. Will hold lisinopril, monitor BP and if required start him on amlodipine 2.5-5 mg pending resolution of SABAS * Diet: Heart healthy * I&O over the next 24 hours. Continuing tamsulosin and dutasteride for BPH. Will collect a urine sample patient to assess possible cause of transient hematuria. * DVT prophylaxis: Heparin 5000 units subcutaneous Q8 * CODE STATUS: DNR/DNI
[2016-12-14 07:54] LABS: ABSOLUTE BASOPHIL COUNT 0 /CUMM (0.0-0.2); ABSOLUTE EOSINOPHIL COUNT 0 /CUMM (0.0-0.7); ABSOLUTE GRANULOCYTE CT 6.7 /CUMM (1.4-6.5); ABSOLUTE LYMPH COUNT 0.6 /CUMM (1.2-3.4); ABSOLUTE MONOCYTE COUNT 0.5 /CUMM (0.10-0.60); BASOPHIL % 0 % (0.0-2.0); EOSINOPHIL % 0.1 % (0-5); GRANULOCYTE % 85.7 % (42.2-75.2); HEMATOCRIT 35.3 % (42-52); MEAN CORPUSCULAR HGB 29.6 PG (27.0-31.0); MEAN CORPUSCULAR HGB CONC 33.4 G/DL (33.0-37.0); MEAN CORPUSCULAR VOLUME 88.8 FL (80.0-94.0); MEAN PLATELET VOLUME 11.1 FL (7.4-10.4); PLATELET COUNT 144 /CUMM (130-400); RBC DISTRIBUTION WIDTH 14.5 % (11.5-14.5); RED BLOOD CELL CT 3.98 /CUMM (4.70-6.10); WHITE BLOOD CELL COUNT 7.8 /CUMM (4.8-10.8)
[2016-12-14 14:59] VITALS: BP 134/88
[2016-12-14 22:34] VITALS: BP 122/64
--- NOTE | 2016-12-15 07:00 | PN- Housestaff ---
Subjective Follow-up For: 1. URI symptoms (rhinorrhea, watery eyes, nasal congestion, sore throat) 2. hoarseness, wheezing 3. one episode of blood in the urine and dysuria Subjective: I saw and examined Mr. Hernández this morning, he is awake and in no distress, feels better compared to yesterday but feels he needs one more day before he goes home. Reports watery eyes and congested nose, reports improvement in coughing and SOB, but still gets short of breath when walking, which states is not her baseline. Denies any pain in the abdomen, denies burning with urination and denies blood in the urine. Review of Systems Constitutional: Denies: chills, fever, malaise, weakness. EENTM: Reports: eye tearing, nasal congestion, throat pain. Cardiovascular: Denies: chest pain, palpitations, peripheral edema. Respiratory: Reports: cough, short of breath (on exertion), sputum production. Denies: wheezing. Gastrointestinal: Denies: abdominal pain, changes in stool. Genitourinary: Denies: discharge, hematuria, pain. Musculoskeletal: Reports: no symptoms. Skin: Reports: no symptoms. Neurological/Psychological: Reports: no symptoms. Objective Last 24 Hrs of Vital Signs/I&O Vital Signs Date Time Temp Pulse Resp B/P Pulse O2 O2 Flow FiO2 Ox Delivery Rate 12/15 0825 70 118/74 12/15 0817 98 Room Air 12/15 0732 97.5 70 18 118/74 97 Room Air 12/14 2234 97.9 81 20 122/64 97 Room Air 12/14 1825 98 Room Air 12/14 1600 Room Air 12/14 1459 97.8 80 20 134/88 96 Intake & Output 12/15 1600 12/15 0800 12/15 0000 Intake Total 960 1000 Output Total 600 600 Balance 360 400 Intake, IV 300 Intake, Oral 960 700 Output, Urine 600 600 Physical Exam General Appearance: Alert, Oriented X3, Cooperative, No Acute Distress Skin: No Rashes, No Breakdown, No Significant Lesion HEENT: Atraumatic, EOMI Neck: Supple, No JVD Cardiovascular: Regular Rate, Normal S1, Normal S2, No Murmurs Lungs: inspiratory and expiratory wheezing, bilateral and diffuse, decreased air moevement. Abdomen: Normal Bowel Sounds, Soft, No Tenderness, No Hepatospenomegaly Neurological: Normal Gait, Normal Speech, Strength at 5/5 X4 Ext, Normal Tone Extremities: No Edema, Normal Pulses Vascular: Pulses Symmetrical Current Medications: Current Medications Sig/Yamel Start time Last Medication Dose Route Stop Time Status Admin Acetaminophen 650 MG Q6P PRN 12/12 1600 AC 12/13 PO 2201 Albuterol Sulfate 3 ML EVERY 4 HRS/AWAKE 12/13 0800 AC 12/15 INH 0815 Artificial Tears 2 GTT Q4P PRN 12/15 0845 AC 12/15 OPH 1001 Azithromycin 500 MG 12/120 AC 12/14 Dextrose/Water 250 ML IV 210 Ceftriaxone Sodium 1,000 MG 12/12 2200 DC 12/13 IV 2131 Dutasteride 0.5 MG DAILY 12/13 1000 AC 12/15 PO 0825 Guaifenesin 10 ML Q6P PRN 12/12 2130 AC 12/15 PO 0825 Heparin Sodium 5,000 UNIT Q8 12/12 2200 AC 12/15 (Porcine) SC 0645 Methylprednisolone 40 MG Q24 12/15 1000 DC IV Methylprednisolone 40 MG Q12 12/15 1000 AC 12/15 IV 0825 Patient Medication 1 ED .STK-MED ONE 12/14 1342 DC Teaching ED 12/14 1343 Tamsulosin HCl 0.4 MG 12/13 0800 AC 12/15 PO 0825 Last 24 Hrs of Lab/Tylor Results Last 24 Hrs of Labs/Mics: Laboratory Tests 12/15/16 0645: Anion Gap 6, Estimated GFR > 60, BUN/Creatinine Ratio 34.5 H Assessment/Plan Assessment: 81-year-old gentleman with a PMH of asthma, HTN, BPH who presents with 5 day duration of productive cough, intermittent fevers, chills, URI symptoms, started on azithromycin and guaifenesin with codeine 24 hours ago with no improvement. Patient was also taking Tylenol and Advil every 3 hours for sore throat. Rapid influenza test came back negative. VS: BP 106/92, HR 98, RR 15, SPO2 95% on RA, T 98.9. MAXIMUM TEMPERATURE 100.1. Labs: WBC 6.7, H&H 13.7/41.6, platelets 136, sodium 146, BUN/CR 35/1.8, glucose 106 Problem list: 1. Bronchitis and possible asthma exacerbation 2. Acute kidney injury 3. Hyponatremia 4. HTN 5. BPH, one episode of dysuria and hematuria negative urine strep, Legionella antigen negative rapid strep throat culture negative Flu test Plan: * Follow Pulmonary recommendations, follow sinus Xray results. * Continue ceftriaxone and azithromycin, continue IV solumedrol (will keep it at Q12 today) and nebulizer Tx * Dysuria and hematuria: one episode, resolved, UA shows RBCs, Hb, WBC, Urine culture No growth after 2 days, will follow * SABAS: improving after hydration. Avoid nephrotoxic agents * HTN: held lisinopril for SABAS (he takes 2.5 mg daily, BP has been borderline low since admission, will most likely stop at discharge) * Skin irritation on the lower nose and above upper lip: vaseline ointment * Nasal congestion and watery eyes: NS nasal spray, artificial tears * I&O over the next 24 hours. * BPH: Continuing tamsulosin and dutasteride * Diet: Heart healthy * DVT prophylaxis: Heparin 5000 units subcutaneous * CODE STATUS: DNR/DNI Problem List: 1. BPH (benign prostatic hypertrophy) 2. Asthma 3. Bronchitis Pain Ratin Pain Location: no pain Pain Goal: Pain 4 or less Pain Plan: mild pain pathway Tomorrow's Labs & Rationales: no labs
[2016-12-15 07:32] VITALS: BP 118/74
--- NOTE | 2016-12-15 10:00 | Discharge Summary ---
Visit Information Visit Dates Admission Date: 12/12/16 Discharge Date: 12/16/16 Hospital Course Course Attending Physician: KARINA LEE,[place] Martines Primary Care Physician: PATSY MILLER DO Hospital Course: Patient is a 81-year-old gentleman with a PMH of asthma, HTN and BPH who presented with 5 day duration of productive cough, intermittent fevers, chills, URI symptoms, started on azithromycin and guaifenesin with codeine 24 hours before presentation to the ED with no improvement. Patient was also taking Tylenol and Advil every 3 hours for sore throat. Patient was admitted to general medicine floor and the following were addressed during his hospital course: Bronchiolitis, asthma exacerbation, chronic sinusitis Patient reported fever, productive cough, sorethroat and nasal congestion on admission. Rapid influenza test and Urine strep and Legionella antigen were negative. Denied SOB and did not appear to be in respiratory distress saturating in room air. He had bilateral and generalized wheezing. He received a dose of dexamethazone in the ED, was initially started on Ceftriaxone and Azithromycin for possible pneumonia (as well as UTI as the patient reported one episode of dysuria and was found to have hematuria). However, CXR came back negative and patient did not spike any fever again. Ceftriaxone was DC'd after 3 days and azithromycin was continued to complete a 5 day course. Patient also received Albuterol inhaler and IV solumedrol as well as Atrovent. Pulmonary consult was also obtained with Dr. Barakat and recommendations followed. Patient is discharged home on prednisone taper. He will follow up outpatient with Dr. Barkaat. Patient reported skin irritation on the lower nose and above upper lip for which he received vaseline ointment. He also reported Nasal congestion Sinus Xray showed Moderate opacification of the maxillary sinuses with air-fluid levels. Nasal spray of normal saline was administered. Patient is advised to follow up with ENT after discharge for chronic sinusitis. He also complained of watery and itchy eyes, artificial tears helped with these symptoms. Acute kidney injury Patient had Cr of 1.8 on admission, possibly pre-renal and due to dehydration. He received IV normal saline. Cr improved to 1.1 at discharge. Hypernatremia Na of 146 on admission, resolved the next day after hydration. Na at discharge: 142. HTN Lisinopril was on hold for SABAS. blood pressure remained stable and in normal range without treatment. We discontinued lisinopril 2.5 mg daily upon discharge. BPH We continued tamsulosin and dutasteride. Patient reported one episode of dysuria and hematuria on the day of admission, which did not recur afterwards. UA showed RBCs, Hb and WBC. Urine culture showed no growth after 2 days. Diet: Heart healthy DVT prophylaxis: Heparin 5000 units subcutaneous CODE STATUS: DNR/DNI Allergies: Coded Allergies: Penicillins (SOB 01/06/16) oxycodone (From PERCOCET) (Intermediate, HALLUCINATIONS 01/06/16) Significant Procedures: SERVICE DATE: 12/12/16 EXAM TYPE: RAD - XRY-CHEST XRAY, PA AND LATERAL EXAMINATION: XR CHEST CLINICAL INFORMATION: Cough. Fever. Sputum production. Evaluate for pneumonia. COMPARISON: Chest x-ray dated 12/10/2016, 08/05/2015 and 11/12/2010. TECHNIQUE: 2 views of the chest were obtained. FINDINGS: The cardiomediastinal silhouette is within normal limits in size. Lungs bilaterally are symmetrically mildly hyperinflated and demonstrate slight thickening of the central airways, consistent with obstructive lung disease. No focal consolidation, effusion or pneumothorax is seen. Bony structures are unremarkable. IMPRESSION: 1. Unchanged appearance of the chest with no focal pneumonia seen. 2. Obstructive lung disease. DICTATED BY: VICENTE HONG MD DATE/TIME DICTATED:12/12/161214 OPERATOR/ASSISTANT FOREMAN:[email or web address] DATE/TIME TRANSCRIBED:12/12/161214 SERVICE DATE: 12/15/16 EXAM TYPE: RAD - XRY-SINUSES, COMPLETE EXAMINATION: XR SINUSES CLINICAL INFORMATION: Nasal congestion and history of sinusitis COMPARISON: None TECHNIQUE: 4 views of the paranasal sinuses FINDINGS: There is moderate opacification of the maxillary sinuses with air-fluid levels. Frontal sinuses are clear. The remaining paranasal sinuses are limited evaluation. The mastoid air cells appear clear. The orbital rims are intact. IMPRESSION: Moderate opacification of the maxillary sinuses with air-fluid levels. DICTATED BY: OVIDIO LEE,UMESH DATE/TIME DICTATED:12/15/162030 OPERATOR/ASSISTANT FOREMAN:[email or web address] DATE/TIME TRANSCRIBED:12/15/162030 Pertinent Lab Results: 12/15/16 0645: Anion Gap 6, Estimated GFR > 60, BUN/Creatinine Ratio 3 12/14/16 0620: Anion Gap 8, Estimated GFR 49 L, BUN/Creatinine Ratio 26.4 H, Magnesium 2.1, CBC w Diff MAN DIFF ORDERED, RBC 3.98 L, MCV 88.8, MCH 29.6, RDW 14.5, MPV 11.1 H, Gran % 85.7 H, Lymphocytes % 7.6 L, Monocytes % 6.6, Eosinophils % 0.1, Basophils % 0 L, Absolute Granulocytes 6.7 H, Segmented Neutrophils 77 H, Band Neutrophils 1, Absolute Lymphocytes 0.6 L, Lymphocytes 12 L, Monocytes 8, Absolute Monocytes 0.5, Absolute Eosinophils 0, Absolute Basophils 0, Metamyelocytes 2 H, Platelet Estimate VERIFIED BY SMEAR, Normocytic RBCs VERIFIED, Normochromic RBCs VERIFIED, PUBS MCHC 33.4 12/12/16 1147: Anion Gap 11, Estimated GFR 36 L, BUN/Creatinine Ratio 19.4, Glucose 106 H, Calcium 9.3, CBC w Diff NO MAN DIFF REQ, RBC 4.63 L, MCV 89.7, MCH 29.6, RDW 14.8 H, MPV 10.2, Gran % 73.8, Lymphocytes % 6.2 L, Monocytes % 17.9 H, Eosinophils % 2.0, Basophils % 0.1, Absolute Granulocytes 4.9, Absolute Lymphocytes 0.4 L, Absolute Monocytes 1.2 H, Absolute Eosinophils 0.1, Absolute Basophils 0, PUBS MCHC 33.0 Disposition Summary Disposition Principal Diagnosis: Asthma exacerbation Additional Diagnosis: BPH, HTN Discharge Disposition: home or self care Discharge Instructions General Discharge Information Code Status: Do Not Resucitate/Intubat Patient's Diet: Regular Patient's Activity: as tolerated Follow-Up Instructions/Appts: Please: 1.follow up with your PCP in a week 2.follow up with Dr. Figueroa in a week 3.follow up with ENT, Dr. Preciado regarding chronic sinusitis 4. We have stopped your blood pressure medication (lisinopril) due to well- controlled blood pressure readings during your hospitalization. Please follow-up with your PCP within 1-2 weeks for a recheck on blood pressure Medications at Discharge Discharge Medications: Stop taking the following medications: Lisinopril (Lisinopril) 5 MG TABLET ORAL DAILY Qty = 90 Azithromycin (Zithromax) 250 MG TABLET ORAL As Directed Continue taking these medications: Tamsulosin HCl (Flomax) 0.4 MG CAP.ER.24H 1 Capsule ORAL DAILY Comments: TAKEN 12/16 AT 10AM Dutasteride (Avodart) 0.5 MG CAPSULE 1 Capsule ORAL DAILY Comments: TAKEN 12/16 AT 10AM Multivitamin (Multiple Vitamins) 1 EACH TABLET 1 Tablet ORAL DAILY Albuterol Sulfate (Albuterol Sulfate) 2.5 MG/3 ML (0.083 %) VIAL.NEB 1 Vial Inhale Solution EVERY 4 HOURS NEEDED as needed for ASTHMA Albuterol Sulfate (Proventil Hfa) 90 MCG HFA.AER.AD 2 Puff Inhale through mouth 4 TIMES A DAY as needed for ASTHMA Fluticasone/Vilanterol (Breo Ellipta 200-25 Mcg INH) 200 MCG-25 MCG/DOSE BLST.W.DEV 1 PUFF ORAL DAILY Qty = 60 Robitussin AC (Guaifenesin-Codeine Syrup) (Unknown Strength) LIQUID Unknown Dose NEEDED as needed for COUGH Start taking the following new medications: Azithromycin (Azithromycin) 500 MG TABLET 1 Tablet ORAL DAILY Qty = 2 No Refills Instructions: Take one tablet on 12/17/16 and the last on 12/18/16 Prednisone (Prednisone) 10 MG TABLET 1 Tablet ORAL As Directed Qty = 10 No Refills Instructions: On Take 12/17-12/18 60 MG 12/19-12/21 50 MG 12/22-12/24 40 MG 12/25-12/27 30 MG 12/28-12/30 20 MG 12/31-01/02 10 MG Then Stop Copies To: CHARO LEE,PAGE Wade; TERESITA LEE,SILVIA Roberts; PATSY MILLER DO Attending Review Statement Documenting Attending: KARINA LEE,[place] Martines Other Findings: Agree with the above discharge plan.
--- NOTE | 2016-12-15 12:41 | Cons- Pulmonary ---
General Information and HPI Consulting Request Date of Consult: 12/15/16 Requested By: юлия Reason for Consult: Shortness of breath COPD exacerbation History of Present Illness: This is a 81-year-old gentleman with history of asthma COPD admitted with an exacerbation.. He returned from a retreat with fever and productive cough increasing shortness of breath and wheezing he been seen in the emergency room and started on codeine and Z-Farhan however failed to improve and was admitted for management of persistent symptoms. He has slowly improved but continues to have persistent cough productive of discolored sputum. He's had some nasal bleeding and has complained of significant greenish nasal discharge. Chest x-rays have been unrevealing for pneumonia. Evaluation for flu was negative. Continues to feel somewhat weak and concerned about returning home living alone Allergies/Medications Allergies: Coded Allergies: Penicillins (SOB 01/06/16) oxycodone (From PERCOCET) (Intermediate, HALLUCINATIONS 01/06/16) Home Med List: Albuterol Sulfate 2.5 MG/3 ML (0.083 %) VIAL.NEB 1 Vial INH/COURTNEY Q4P PRN ASTHMA (Reported) Albuterol Sulfate (Proventil Hfa) 90 MCG HFA.AER.AD 2 PUF INH 4 TIMES/DAY PRN ASTHMA (Reported) Azithromycin (Zithromax) 250 MG TABLET 1 DP PO AD URI (Reported) 2 the first day followed by 1 for days 2-5 Dutasteride (Avodart) 0.5 MG CAPSULE 1 CAP PO DAILY PROSTATE (Reported) Fluticasone/Vilanterol (Breo Ellipta 200-25 Mcg INH) 200 MCG-25 MCG/DOSE BLST.W.DEV 1 PUFF PO DAILY BREATHING PROBLEMS (Reported) Lisinopril 5 MG TABLET 1 TAB PO DAILY HEART (Reported) Multivitamin (Multiple Vitamins) 1 EACH TABLET 1 TAB PO DAILY SUPPLEMENT ( Reported) Robitussin AC (Guaifenesin-Codeine Syrup) (Unknown Strength) LIQUID (Unknown Dose) PRN PRN COUGH (Reported) Tamsulosin HCl (Flomax) 0.4 MG CAP.ER.24H 1 CAP PO DAILY PROSTATE (Reported) Review of Systems Review of Systems Constitutional: Reports: weakness. Denies: chills, fever. Cardiovascular: Reports: palpitations. Denies: chest pain, edema. Respiratory: Reports: cough, short of breath, sputum production, wheezing. GI: Denies: abdominal pain, bloating, diarrhea, melena, vomiting. 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 , Age 60+. FATHER (stomach cancer). , Age 60+. SISTER (dementia). BROTHER (dementia in two brothers). . Psychosocial History Who Do You Live With? self Services at Home: None Primary Language: Japanese Smoking Status: Former Smoker ETOH Use: occasional use Illicit Drug Use: denies illicit drug use Functional Ability ADLs Independent: dressing, eating, toileting, bathing. Ambulation: cane, walker IADLs Independent: shopping, housework, finances, food prep, telephone, transportation , medication admin. Exam & Diagnostic Data Last 24 Hrs of Vital Signs/I&O Vital Signs Date Time Temp Pulse Resp B/P Pulse O2 O2 Flow FiO2 Ox Delivery Rate 12/15 0825 70 118/74 12/15 0817 98 Room Air 12/15 0800 Room Air 12/15 0732 97.5 70 18 118/74 97 Room Air 12/14 2234 97.9 81 20 122/64 97 Room Air 12/14 1825 98 Room Air 12/14 1600 Room Air 12/14 1459 97.8 80 20 134/88 96 Intake & Output 12/15 1600 12/15 0800 12/15 0000 Intake Total 960 1000 Output Total 600 600 Balance 360 400 Intake, IV 300 Intake, Oral 960 700 Output, Urine 600 600 Room oxygen saturation 98% HNT exam shows no adenopathy exam of his chest shows faint expiratory wheezing cardiac exam shows regular S1 and S2 without murmurs abdominal exam is soft nontender extremities without edema Last 48 Hrs of Labs/Tylor: Laboratory Tests 12/15/16 0645: Anion Gap 6, Estimated GFR > 60, BUN/Creatinine Ratio 34.5 H 12/14/16 0620: Anion Gap 8, Estimated GFR 49 L, BUN/Creatinine Ratio 26.4 H, Magnesium 2.1, CBC w Diff MAN DIFF ORDERED, RBC 3.98 L, MCV 88.8, MCH 29.6, RDW 14.5, MPV 11.1 H, Gran % 85.7 H, Lymphocytes % 7.6 L, Monocytes % 6.6, Eosinophils % 0.1, Basophils % 0 L, Absolute Granulocytes 6.7 H, Segmented Neutrophils 77 H, Band Neutrophils 1, Absolute Lymphocytes 0.6 L, Lymphocytes 12 L, Monocytes 8, Absolute Monocytes 0.5, Absolute Eosinophils 0, Absolute Basophils 0, Metamyelocytes 2 H, Platelet Estimate VERIFIED BY SMEAR, Normocytic RBCs VERIFIED, Normochromic RBCs VERIFIED, PUBS MCHC 33.4 Assessment/Plan Impression/Plan: 81-year-old gentleman with COPD and reactive airways disease was admitted with an exacerbation he has slowly improved but remains symptomatic his nasal complaints raised the possibility of sinusitis. Because of his age and weakness he is amenable to consideration of short-term rehabilitation. Recommendations: Transition to by mouth prednisone later today. Continue baseline bronchodilator regimen. Continue nebulized bronchodilators. Obtain sinus x-rays. Case management to evaluate feasibility of short-term rehabilitation. Attempt to obtain sputum for C&S. Patient can be seen in the office following discharge. Consult Acknowledgment - Thank you for your consult request.
[2016-12-15 14:43] VITALS: BP 124/80
--- NOTE | 2016-12-15 15:43 | PN- Att Addend ---
Attending MD Review Statement Attending Statement Attending MD Statement: examined this patient, discuss w/resident/PA/LOGISTICS ASSISTANT, agreed w/resident/PA/LOGISTICS ASSISTANT, reviewed EMR data (avail), discussed w/nursing Attending Assessment/Plan: Laboratory Tests 12/15/16 0645: Anion Gap 6, Estimated GFR > 60, BUN/Creatinine Ratio 34.5 H Vital Signs Date Time Temp Pulse Resp B/P Pulse O2 O2 Flow FiO2 Ox Delivery Rate 12/15 1443 98.5 80 20 124/80 97 Room Air 12/15 0825 70 118/74 12/15 0817 98 Room Air 12/15 0800 Room Air 12/15 0732 97.5 70 18 118/74 97 Room Air 12/14 2234 97.9 81 20 122/64 97 Room Air 12/14 1825 98 Room Air 12/14 1600 Room Air Acute asthma exacerbation with acute bronchitis- pt feeling worse than yesterday. Patient still having significant wheezing on exam today so we will continue with the Solu-Medrol 40 mg IV every 12 hours for today and will switch to po prednisone tomorrow am. d/w pt the care plan.
--- NOTE | 2016-12-15 20:36 | RADIOLOGY REPORT ---
EXAMINATION: XR SINUSES CLINICAL INFORMATION: Nasal congestion and history of sinusitis COMPARISON: None TECHNIQUE: 4 views of the paranasal sinuses FINDINGS: There is moderate opacification of the maxillary sinuses with air-fluid levels. Frontal sinuses are clear. The remaining paranasal sinuses are limited evaluation. The mastoid air cells appear clear. The orbital rims are intact. IMPRESSION: Moderate opacification of the maxillary sinuses with air-fluid levels.
--- NOTE | 2016-12-15 20:43 | Patient Discharge Instructions ---
Discharge Instructions General Discharge Information You were seen/treated for: Asthma exacerbation and bronchiolitis Special Instructions: Please: 1.follow up with your PCP in a week 2.follow up with Dr. Figueroa in a week 3.follow up with ENT, Dr. Preciado regarding chronic sinusitis 4. We have stopped your blood pressure medication (lisinopril) due to well- controlled blood pressure readings during your hospitalization. Please follow-up with your PCP within 1-2 weeks for a recheck on blood pressure Diet Recommended Diet: Regular Activity Activity Self Limited: Yes Acute Coronary Syndrome Inclusion Criteria At DC or during hospital stay patient has or had the following: ACS DIAGNOSIS No Discharge Core Measures Meds if any: Prescribed or Continued at Discharge Meds if any: NOT Prescribed or Continued at Discharge Congestive Heart Failure Inclusion Criteria At DC or during hospital stay patient has or had the following: CHF DIAGNOSIS No Discharge Core Measures Meds if any: Prescribed or Continued at Discharge Meds if any: NOT Prescribed or Continued at Discharge Cerebrovascular accident Inclusion Criteria At DC or during hospital stay patient has or had the following: CVA/TIA Diagnosis No Discharge Core Measures Meds if any: Prescribed or Continued at Discharge Meds if any: NOT Prescribed or Continued at Discharge Venous thromboembolism Inclusion Criteria VTE Diagnosis No VTE Type NONE VTE Confirmed by (Test) NONE Discharge Core Measures - Per Current guidelines, there needs to be overlap - treatment for the first 5 days of Warfarin therapy. - If discharged on Warfarin prior to 5 days of - overlap therapy, the patient will need to be - assessed for post discharge needs including - *Post discharge parental anticoagulation - *Warfarin and/or parental anticoagulation education - *Follow up date to check INR post discharge At least 5 days overlap therapy as Inpatient No Meds if any: Prescribed or Continued at Discharge Note: Overlap Therapy is Warfarin and Anticoagulant Meds if any: NOT Prescribed or Continued at Discharge
[2016-12-15 22:57] VITALS: BP 130/80
[2016-12-16 06:30] VITALS: BP 122/68
--- NOTE | 2016-12-16 06:56 | PN- Housestaff ---
Subjective Follow-up For: 1. URI symptoms (rhinorrhea, watery eyes, nasal congestion, sore throat) 2. hoarseness, wheezing 3. one episode of blood in the urine and dysuria 4. episodes of transient numbness of the left forearm and hand overnight Subjective: I saw and examined Mr. Hernández this morning. He is awake alert oriented in no distress and sitting in bed comfortably. Patient reports that he feels his nose is stuffy and hasn't gotten better with nasal spray. Patient reports having problems with the sinuses in the past and he was seen by Dr. Perciado. He has been using Vaseline ointment on his skin below nose and above the upper lip and reports some improvement in the soreness. Shortness of breath has improved. Still has some cough but less than yesterday. Reports his right forearm and hand becomes numb especially overnight and it causes him to be able to completely make a fist with the right hand. It lasts about 3 hours and resolves on its own. Patient reports no other episode of burning urine or blood in the urine. He feels he needs 1 more night in the hospital before he goes home. Review of Systems Constitutional: Denies: chills, fever, weakness. EENTM: Reports: nasal congestion, nasal pain. Cardiovascular: Denies: chest pain, palpitations, peripheral edema. Respiratory: Reports: cough, sputum production. Denies: short of breath, stridor, wheezing. Gastrointestinal: Denies: abdominal pain, nausea, changes in stool, vomiting. Genitourinary: Denies: dysuria, hematuria, nocturia. Musculoskeletal: Reports: no symptoms. Skin: Reports: change in skin color (below the nose left side), dryness. Neurological/Psychological: Reports: numbness, paresthesia (occasional, right arm). Objective Last 24 Hrs of Vital Signs/I&O Vital Signs Date Time Temp Pulse Resp B/P Pulse O2 O2 Flow FiO2 Ox Delivery Rate 12/16 0630 98.1 73 20 122/68 96 Room Air 12/16 0000 Room Air 12/15 2257 98.1 74 20 130/80 97 Room Air 12/15 2046 96 Room Air 12/15 1600 Room Air 12/15 1443 98.5 80 20 124/80 97 Room Air 12/15 0825 70 118/74 12/15 0817 98 Room Air 12/15 0800 Room Air Intake & Output 12/16 0800 03/ 0000 12/15 1600 Intake Total 980 600 Output Total 470 600 625 Balance -470 380 -25 Intake, IV 280 Intake, Oral 700 600 Number 0 Bowel Movements Output, Urine 470 600 625 Physical Exam General Appearance: Alert, Oriented X3, Cooperative, No Acute Distress Skin: there is dryness and skin irritation below the nose and above the upper lip on the left side HEENT: Atraumatic, EOMI Neck: Supple, No JVD Cardiovascular: Regular Rate, Normal S1, Normal S2, No Murmurs Lungs: Normal Air Movement, expiratory wheezing diffuse, improved compared to yesterday. Abdomen: Normal Bowel Sounds, Soft, No Tenderness Neurological: Normal Speech, Normal Tone Extremities: No Edema, Normal Pulses Vascular: Pulses Symmetrical Current Medications: Current Medications Sig/Yamel Start time Last Medication Dose Route Stop Time Status Admin Acetaminophen 650 MG .STK-MED ONE 12/15 1420 DC PO 12/15 1421 Acetaminophen 650 MG Q6P PRN 12/12 1600 AC 12/15 PO 1428 Albuterol Sulfate 3 ML EVERY 4 HRS/AWAKE 12/13 0800 12/15 INH 2045 Artificial Tears 2 GTT Q4P PRN 12/15 0845 12/15 OPH 1001 Azithromycin 500 MG 12/12 2200 12/15 Dextrose/Water 250 ML IV 211 Dutasteride 0.5 MG DAILY 12/13 1000 AC 12/15 PO 0825 Guaifenesin 10 ML .STK-MED ONE 12/15 2116 DC PO 12/15 2117 Guaifenesin 10 ML Q6P PRN 12/12 2130 12/15 PO 211 Heparin Sodium 5,000 UNIT Q8 12/12 2200 AC 12/16 (Porcine) SC 0633 Methylprednisolone 40 MG Q12 12/15 1000 12/15 IV 2119 Petrolatum 1 VIET Q6 PRN 12/15 1545 AC 12/15 TOP 2123 Sodium Chloride 2 SPRAY Q4P PRN 12/15 1200 12/15 MARIAM 1428 Tamsulosin HCl 0.4 MG 12/13 0800 AC 12/15 PO 0825 Assessment/Plan Assessment: 81-year-old gentleman with a PMH of asthma, HTN, BPH who presents with 5 day duration of productive cough, intermittent fevers, chills, URI symptoms, started on azithromycin and guaifenesin with codeine 24 hours ago with no improvement. Patient was also taking Tylenol and Advil every 3 hours for sore throat. Rapid influenza test came back negative. VS: BP 106/92, HR 98, RR 15, SPO2 95% on RA, T 98.9. MAXIMUM TEMPERATURE 100.1. Labs: WBC 6.7, H&H 13.7/41.6, platelets 136, sodium 146, BUN/CR 35/1.8, glucose 106 Problem list: 1. Bronchiolitis and possible asthma exacerbation, chronic sinusitis 2. Acute kidney injury -resolved 3. Hyponatremia -resolved 4. HTN, controlled 5. BPH, one episode of dysuria and hematuria 6. Right arm paresthesia and numbness at nights negative urine strep, Legionella antigen negative rapid strep throat culture negative Flu test Plan: * Followed Pulmonary recommendations, sinus Xray shows Moderate opacification of the maxillary sinuses with air-fluid levels. * Stopped ceftriaxone yesterday and continued azithromycin, continued IV solumedrol, will switch to PO prednisone today, continue nebulizer Tx * Dysuria and hematuria: one episode, resolved, UA shows RBCs, Hb, WBC, Urine culture No growth after 2 days, will follow * SABAS: improved after hydration. Avoid nephrotoxic agents. * HTN: held lisinopril for SABAS (he takes 2.5 mg daily, BP has been borderline low since admission, will most likely stop at discharge) * Skin irritation on the lower nose and above upper lip: vaseline ointment * Nasal congestion and watery eyes: NS nasal spray, artificial tears * I&O over the next 24 hours. * Follow up outpatient with ENT for chronic sinusitis * BPH: Continuing tamsulosin and dutasteride * Diet: Heart healthy * DVT prophylaxis: Heparin 5000 units subcutaneous * CODE STATUS: DNR/DNI Problem List: 1. BPH (benign prostatic hypertrophy) 2. Asthma 3. Osteoarthritis 4. Acute kidney injury 5. Bronchitis 6. Hypertension 7. S/P knee replacement Pain Ratin Pain Location: no pain Pain Goal: Pain 4 or less Pain Plan: mild pp Tomorrow's Labs & Rationales: no labs
--- NOTE | 2016-12-16 08:06 | PN- Pulmonary ---
Subjective HPI/Critical Care Issues: Patient continues to feel congested sinus x-rays show bilateral maxillary sinuses are infected with air-fluid levels Objective Current Medications: Current Medications Sig/Yamel Start time Last Medication Dose Route Stop Time Status Admin Acetaminophen 650 MG .STK-MED ONE 12/15 1420 DC PO 12/15 1421 Acetaminophen 650 MG Q6P PRN 12/12 1600 AC 12/15 PO 1428 Albuterol Sulfate 3 ML EVERY 4 HRS/AWAKE 12/13 0800 AC 12/15 INH 2045 Artificial Tears 2 GTT Q4P PRN 12/15 0845 AC 12/15 OPH 1001 Azithromycin 500 MG 22012/12 2200 AC 12/15 Dextrose/Water 250 ML IV 2119 Dutasteride 0.5 MG DAILY 12/13 1000 AC 12/15 PO 0825 Guaifenesin 10 ML .STK-MED ONE 12/15 211 DC PO 12/15 211 Guaifenesin 10 ML Q6P PRN 12/12 2130 AC 12/15 PO 2119 Heparin Sodium 5,000 UNIT Q8 12/12 2200 AC 12/16 (Porcine) SC 0633 Methylprednisolone 40 MG Q12 12/15 1000 AC 12/15 IV 2119 Petrolatum 1 VIET Q6 PRN 12/15 1545 AC 12/15 TOP 2123 Sodium Chloride 2 SPRAY Q4P PRN 12/15 1200 AC 12/15 MARIAM 1428 Tamsulosin HCl 0.4 MG 12/13 0800 AC 12/15 PO 0825 Vital Signs & I&O Last 24 Hrs of Vitals and I&O: Vital Signs Date Time Temp Pulse Resp B/P Pulse O2 O2 Flow FiO2 Ox Delivery Rate 12/16 0630 98.1 73 20 122/68 96 Room Air 12/16 0000 Room Air 12/15 2257 98.1 74 20 130/80 97 Room Air 12/15 204 96 Room Air 12/15 1600 Room Air 12/15 1443 98.5 80 20 124/80 97 Room Air 12/15 0825 70 118/74 12/15 0817 98 Room Air Intake & Output 12/16 1600 12/16 0800 12/16 0000 Intake Total 980 Output Total 470 600 Balance -470 380 Intake, IV 280 Intake, Oral 700 Number 0 Bowel Movements Output, Urine 470 600 Oximetry 96% exam of his chest shows occasional rhonchi cardiac exam shows regular S1 and S2 without murmurs Impression/Plan Impression/Plan Impression/Plan: 81-year-old gentleman with COPD and reactive airways disease was admitted with an exacerbation he has slowly improved but remains symptomatic his nasal complaints raised the possibility of sinusitis. Because of his age and weakness he is amenable to consideration of short-term rehabilitation. X-rays show evidence of bilateral maxillary sinusitis Recommendations: Transition to by mouth prednisone later today. Continue baseline bronchodilator regimen. Continue nebulized bronchodilators. Adjust antibiotics for treatment of bilateral maxillary sinusitis. Begin slow prednisone taper
[2016-12-16 09:24] VITALS: BP 122/68
[2016-12-16] MEDS ORDERED: AZITHROMYCIN500 M3 PO (12:21)
[2016-12-16] MEDS ORDERED: PREDNISONE10 M2 PO (12:21)
--- NOTE | 2016-12-16 13:11 | PN- Att Addend ---
Attending MD Review Statement Attending Statement Attending MD Statement: examined this patient, discuss w/resident/PA/ADVISORY SERVICES ASSOCIATE, agreed w/resident/PA/ADVISORY SERVICES ASSOCIATE, reviewed EMR data (avail), discussed w/nursing Attending Assessment/Plan: Vital Signs Date Time Temp Pulse Resp B/P Pulse O2 O2 Flow FiO2 Ox Delivery Rate 12/16 0924 122/68 12/16 0824 98 Room Air Room Air 12/16 0630 98.1 73 20 122/68 96 Room Air 12/16 0000 Room Air 12/15 2257 98.1 74 20 130/80 97 Room Air 12/15 2046 96 Room Air 12/15 1600 Room Air 12/15 1443 98.5 80 20 124/80 97 Room Air Acute asthma exacerbation with acute bronchitis- pt feeling better than yesterday. will switch to po prednisone today and dc home on prednisone taper and will also give referral to ENT for sinusitis management. Dc on Zithromax to complete total of 7 days. d/w pt the care plan.
== END 2016-12-16 14:48 | disposition home health service (06) | DRG 191 ==
LOC: ENRESERVTM → ENRESERVDT → ERH 10:36 → ERHI 14:03 → ENPENDDIS 14:03 → 2NA 14:03
PROVIDERS: Internal Medicine; Ophthalmology; Physician Assistant; ADMIT Internal Medicine
DX: J44.0 Chronic obstructive pulmonary disease with (acute) lower respiratory infection (principal); J45.901 Unspecified asthma with (acute) exacerbation; N17.9 Acute kidney failure, unspecified; E86.0 Dehydration; J20.9 Acute bronchitis, unspecified; J44.1 Chronic obstructive pulmonary disease with (acute) exacerbation; I10 Essential (primary) hypertension; N40.0 Benign prostatic hyperplasia without lower urinary tract symptoms
CPT/HCPCS: 2NASP; 36415; 70220; 81001; 82436; 87040; 87086; 87449; 87450; 87804; 87804-59; 93005; 93010; J0456; J0696; J1644; J2920; J7042; J7060

== ENCOUNTER 2017-01-17 10:08 | Emergency (ER) | payer OTHER, MEDICARE ==
[~2017-01-17] VITALS: Ht 162.6 cm; Wt 70.8 kg
[~2017-01-17 10:08] MED LIST changes: +AZITHROMYCIN500 M3 PO; +GUAIFENESIN-COD10 ML; +PREDNISONE10 M2 PO; +ZITHROMAX250 M2 PO
[2017-01-17 10:29] VITALS: BP 140/88
--- NOTE | 2017-01-17 11:04 | ED UPPER/LOWER EXTREMITY COMPL ---
History of Present Illness General Chief Complaint: General Adult Stated Complaint: "MY SHOULDER SOMETHING WRONG AND I HAVE SHINGLES" Source: patient, old records Exam Limitations: no limitations Vital Signs & Intake/Output Vital Signs & Intake/Output Vital Signs Date Time Temp Pulse Resp B/P Pulse O2 O2 Flow FiO2 Ox Delivery Rate 01/17 1115 97 01/17 1029 96.5 73 20 140/88 97 Room Air Room Air Allergies Coded Allergies: Penicillins (SOB 01/06/16) oxycodone (From PERCOCET) (Intermediate, HALLUCINATIONS 01/06/16) Reconcile Medications Albuterol Sulfate 2.5 MG/3 ML (0.083 %) VIAL.NEB 1 Vial INH/COURTNEY Q4P PRN ASTHMA (Reported) Albuterol Sulfate (Proventil Hfa) 90 MCG HFA.AER.AD 2 PUF INH 4 TIMES/DAY PRN ASTHMA (Reported) Dutasteride (Avodart) 0.5 MG CAPSULE 1 CAP PO DAILY PROSTATE (Reported) Fluticasone/Vilanterol (Breo Ellipta 200-25 Mcg INH) 200 MCG-25 MCG/DOSE BLST.W.DEV 1 PUFF PO DAILY BREATHING PROBLEMS (Reported) Multivitamin (Multiple Vitamins) 1 EACH TABLET 1 TAB PO DAILY SUPPLEMENT ( Reported) Tamsulosin HCl (Flomax) 0.4 MG CAP.ER.24H 1 CAP PO DAILY PROSTATE (Reported) Tramadol HCl 50 MG TABLET 1 TAB PO BIDP PRN pain Triage Note: PT TO ED WITH C/O RIGHT HAND TINGLING X 3 WEEKS, THEN STARTED WITH RIGHT SHOULDER PAIN SINCE WEDNESDAY NIGHT, MADE APPT WITH DR ASHER "BUT IT'S NOT UNTIL 2 WEEKS FROM NOW, AND I CAN'T MOVE". Triage Nurses Notes Reviewed? yes Onset: Abrupt Duration: day(s): (4), constant Timing: recent history Severity: moderate Severity Numbers: 8 Pain/Injury Location: Right: Shoulder. Method of Injury: unknown Modifying Factors: Improves With: pain medication, rest. Worsens With: movement. Associated Symptoms: numbness (x 3 months to hand) HPI: 81-year-old male presents emergency room complaining of a four-day history of lateral right shoulder pain that is nonradiating severe aching throbbing localized to the right shoulder that is worse with range of motion of the shoulder and elbow associated with a 3 month history of right hand numbness for which she is scheduled to see a neurologist Dr. Asher in 2 weeks. The patient denies any known injury or trauma. No history of similar episodes in the past. He denies any neck back or chest pain no pain with inspiration no abdominal pain nausea or vomiting. He took Advil last night with only mild improvement. Pain is worse with attempted range of motion or palpation of the shoulder. He denies any swelling to his arm. The patient recently got over shingles to his face for which she was on prednisone cream, and valacyclovir. He denies noting a rash to his arm . He has not taken anything for his symptoms today. (RAYNA NESBITT) Past History Travel History Traveled to [place] past 21 day No Medical History Any Pertinent Medical History? 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 , Age 60+. FATHER (stomach cancer). , Age 60+. SISTER (dementia). BROTHER (dementia in two brothers). . Hx Contributory? No (RAYNA NESBITT) Review of Systems Review of Systems Constitutional: Reports: see HPI. All Other Systems: Reviewed and Negative Comments Review of systems: See HPI, All other systems negative. Constitutional, no chills no fever, no malaise HEENT: No visual changes no sore throat no congestion, no ear pain Cardiovascular: No chest pain , no palpitation Skin, no rashes, no change in skin Respiratory: No dyspnea no cough no sputum GI: No nausea no vomiting, no diarrhea, : No dysuria No hematuria, Muscle skeletal: No joint pain, no back pain, no neck pain, Neurologic: no headache Psych: No stress Heme/endocrine: No bruising Immunology: No lymphadenopathy (RAYNA NESBITT) Physical Exam Physical Exam General Appearance: well developed/nourished, alert, awake Comments: Well-developed well-nourished patient in no apparent distress. HEENT: Atraumatic, extraocular motion intact Neck: Supple, FROM nontender to palpation Back: FROM Cardiovascular: Regular rate and rhythms no murmurs rubs or gallops, Respiratory: Chest nontender.There were no bony deformities, no asymmetry. No respiratory distress. Patient speaking in full complete sentences. Breath sounds clear to auscultation bilaterally: NO W/R/R Shoulder: Tender to palpation over the lateral surface of the right shoulder, is no ecchymosis no deformity no rash or vesicles noted to the upper extremity Elbow: Atraumatic/stable. FROM. No laxity Upper arm/Forearm: Atraumatic. Nontender. No edema, 5 out of 5 contact lens edge buffer strength noted to bilateral upper extremities Hand/Wrist: Atraumatic/stable. Skin intact. FROM, full sensation noted Pulses: Normal/equal radial pulses bilaterally. Brisk cap refill Lower Extremities: full range of motion Neuro: Alert and oriented x3 Skin: Warm & dry;No appreciable rash on exposed skin Psych: Mood affect normal, normal memory normal judgment. (RAYNA NESBITT) Progress Differential Diagnosis: cellulitis, compartment syndrome, contusion, dislocation , DVT, fracture, gout, septic arthritis, sprain, tendon injury, shingles, AMI, ANGINA, PE Plan of Care: Orders Procedure Date/time Status Durable Medical Equipment 01/17 1144 Active I considered a differential coronary or pulmonary issues the patient denies shortness of breath chest pain pain with inspiration symptoms do not come on with exertion deep breath laying flat there are reproducible with palpation and movement of the shoulder patient is medicated with TRAMADOL here. I discussed with the patient at length all of their results. I had an extensive conversation regarding need for close follow up with their primary care physician, neurologist as well as orthopedist this week as well as return precautions. I answered all of their questions, they feel comfortable with the plan and follow-up care. I discussed the medications that they will receive with the patient. I gave them signs and symptoms that could indicate an adverse reaction. I have advised them to limit their activities until they can see how they respond to the medication. (RAYNA NESBITT) Diagnostic Imaging: Viewed by Me: Radiology Read. Discussed w/RAD: Radiology Read. Radiology Impression: PATIENT: FRANCHESCA CAMPOS PRESENT AGE: 81 PATIENT ACCOUNT NO: [id number] : 34 LOCATION: [facility] ORDERING PHYSICIAN: RAYNA CORDERO SERVICE DATE: 01/17/17 EXAM TYPE: RAD - XRY- SHOULDER COMPLETE-RIGHT EXAMINATION: XR SHOULDER, RIGHT CLINICAL INFORMATION: 81 -year-old man with atraumatic right shoulder pain. COMPARISON: 12/12/2016 chest radiograph TECHNIQUE: 4 of the right shoulder. FINDINGS: There is no evidence of acute fracture. Alignment remains anatomic. Mild degenerative changes are noted at the acromioclavicular joint. IMPRESSION: No evidence of acute fracture. DICTATED BY: EFREM WHYTE MD DATE/TIME DICTATED:01/17/171231 DIGITAL PRINT OPERATOR: TAWNYA DATE/TIME TRANSCRIBED:01/17/171231 CONFIDENTIAL, DO NOT COPY WITHOUT APPROPRIATE AUTHORIZATION. <Electronically signed in Other Vendor System> SIGNED BY: EFREM WHYTE MD 01/17/17 1236 (RAYNA NESBITT) Departure Departure Time of Disposition: 1247 Disposition: HOME OR SELF CARE Condition: Stable Clinical Impression Primary Impression: Shoulder sprain Referrals: PATSY MARK DO (PCP/Family) Additional Instructions: follow up with dr asher and dr mark this week as well as orthopedist dr thomas. rest, ice, shoulder sling as discussed. tramadol for pain. return at anytime sooner with any concerns Departure Forms: Customer Survey General Discharge Information Prescriptions: Current Visit Scripts Tramadol HCl 1 TAB PO BIDP PRN pain #10 TAB (RAYNA NESBITT) PA/MONUMENT SETTER HELPER Co-Sign Statement Statement: ED Attending supervision documentation- x I saw and evaluated the patient. I have also reviewed all the pertinent lab results and diagnostic results. I agree with the findings and the plan of care as documented in the PA's/MONUMENT SETTER HELPER's documentation. [] I have reviewed the ED Record and agree with the PA's/MONUMENT SETTER HELPER's documentation. [] Additions or exceptions (if any) to the PAs/MONUMENT SETTER HELPER's note and plan are summarized below: [] (RICKI LEE,TJ)
--- NOTE | 2017-01-17 12:36 | RADIOLOGY REPORT ---
EXAMINATION: XR SHOULDER, RIGHT CLINICAL INFORMATION: 81-year-old man with atraumatic right shoulder pain. COMPARISON: 12/12/2016 chest radiograph TECHNIQUE: 4 of the right shoulder. FINDINGS: There is no evidence of acute fracture. Alignment remains anatomic. Mild degenerative changes are noted at the acromioclavicular joint. IMPRESSION: No evidence of acute fracture.
[2017-01-17] MEDS ORDERED: TRAMADOL HCL50 M1 PO (12:47)
== END 2017-01-17 13:03 ==
LOC: ERH 10:08
DX: S43.401A Unspecified sprain of right shoulder joint, initial encounter (principal); X58.XXXA Exposure to other specified factors, initial encounter; Y93.9 Activity, unspecified; Y92.9 Unspecified place or not applicable
CPT/HCPCS: 73030-RT